=== PATIENT | female | born 1930 | race Caucasian/White ===

== ENCOUNTER 2017-01-20 20:46 | Inpatient (IN) | payer OTHER, MEDICARE ==
[~2017-01-20] VITALS: Ht 152.4 cm; Wt 52.0 kg
[~2017-01-20 20:46] MED LIST: ATOR20TA42 PO; B12-1CHW PO; FOSA70TA PO; HALO0.5T PO; LATA.005%O OU; MAXZ25 PO; METO50 PO; MONT10TA2 PO; PHEN100 PO; TYLE500T PO
[2017-01-20 20:50] VITALS: BP 184/79; PULSE 66; RESP 20; TEMP 97.5; O2SAT 98
--- NOTE | 2017-01-20 21:19 | PD ---
Physical Exam Time Seen by Provider: 21:13 Narrative 86 year old female with history of dementia, colon ca in 2002 (last colonoscopy 2011), HTN, seizure disorder, RA, anxiety, presents to ED with her daughter for evaluation of large flora red bloody stools x 2 today. Pt's daughter states that the pt has been complaining of low back pain and proximal leg weakness. She has been taking two aleve in the morning and two at night for the last three days. She has never had anything like this in the past. She has felt warm to her daughter, but has had not recent illness. No N/V. She has been relatively well lately. She is followed by Dr. Abbott's [facility].. Data Data Last Documented VS Vital Signs Date Time Temp Pulse Resp B/P Pulse Ox O2 Delivery O2 Flow Rate FiO2 01/20/17 20:50 97.5 66 20 184/79 98 MDM Medical Record Reviewed: Yes Supervised Visit with RENATA: No Narrative Course 86 year old female presents with her daughter for evaluation of two episodes of flora red bloody stools. Pt appears without distress. VSS. Condition: Stable Elva Gilbert Jan 20, 2017 21:19
[2017-01-20] MEDS ORDERED: SODIUM CHLORIDE 0.9% FLUSH 10 ML FLUSH IVF PRN (21:45)
--- NOTE | 2017-01-20 21:54 | PD ---
HPI Chief Complaint: GI Complaint Time Seen by Provider: 21:30 Travel History International Travel<30 days: No Contact w/Intl Traveler<30days: No Traveled to known affect area: No History of Present Illness HPI Patient comes in with her daughter has concerns over bright red blood per rectum the daughter noted in her stool earlier today most recently had a depends changed while in the waiting room the daughter saved. States that her mother complaining of weakness in her legs and back pain. Patient seen by primary care doctor's office has been taking ibuprofen for the past 2 weeks, but it wasn't working so they switched to Aleve the past 3 days. Denies any other known blood thinners. Patient does have a history of colon cancer and last had a colonoscopy in 2012 per daughter. Patient has a history of dementia and is a poor historian. Patient denies any pain or currently. Denies any chest pain, shortness of breath, abdominal pain, headache, or known fevers. PFSH Past Medical History Arthritis: Yes (left thumb) Cancer: Yes (colon 2002) Cardiovascular Problems: Yes (HTN) High Cholesterol: Yes Chemotherapy: Yes Chest Pain: No Congestive Heart Failure: No Cerebrovascular Accident: No Dementia: Yes Diabetes: No Diminished Hearing: Yes (WEARS HEARING AID IN RIGHT EAR. ) Endocrine: No Gastrointestinal Disorders: Yes GERD: Yes Glaucoma: Yes Genitourinary: Yes (HX OF UROSEPSIS) Headaches: Yes Hypertension: Yes Immune Disorder: No Musculoskeletal: Yes Neurologic: Yes (DAUGHTER STATES DEMENTIA) Psychiatric: No Integumentary: Yes (DSG LEFT INDEX FINGER, POST I&D 2 DAYS AGO, ON ANTIBIOTICS) Immunizations Current: Yes Seizures: No Triglycerides - High: Yes Tetanus Vaccination: Unknown Menopausal: Yes Past Surgical History Abdominal Surgery: No Cardiac Surgery: No Ear Surgery: No Endocrine Surgery: No Eye Surgery: Yes (cataract implants 1984) Genitourinary Surgery: No Gynecologic Surgery: No Joint Replacement: Yes Oral Surgery: Yes (teeth pulled) Thoracic Surgery: No Other Surgery: Yes Social History Alcohol Use: No Tobacco Use: No Substance Use: No Allergies-Medications (Allergen,Severity, Reaction): Coded Allergies: Bactrim (Verified Allergy, Mild, 01/20/17) Reported Meds & Prescriptions Reported Meds & Active Scripts Active Review of Systems ROS Limitations: Poor Historian Except as stated in HPI: all other systems reviewed are Neg Physical Exam Exam Limitations: Poor Historian Narrative GENERAL: Well-developed, well nourished, in no acute distress, and non-ill appearing. SKIN: Focused skin assessment warm and dry. HEAD: Atraumatic. Normocephalic. EYES: Pupils equal and round. EOMI. No scleral icterus. No injection or drainage. ENT: No nasal bleeding or discharge. Mucous membranes pink and moist. NECK: Trachea midline. Supple. No nuclear rigidity. CARDIOVASCULAR: Regular rate and rhythm. No murmur appreciated. RESPIRATORY: No accessory muscle use. No respiratory distress. Clear to auscultation. Breath sounds equal bilaterally. GASTROINTESTINAL: Abdomen soft, non-tender, nondistended. Hepatic and splenic margins not palpable. Normal bowel sounds 4. No pulsatile mass. MUSCULOSKELETAL: No obvious deformities. No clubbing. No cyanosis. No edema. NEUROLOGICAL: Awake and alert. No obvious cranial nerve deficits. Motor grossly within normal limits. Normal speech. PSYCHIATRIC: Appropriate mood and affect. Data Data Last Documented VS Vital Signs Date Time Temp Pulse Resp B/P Pulse Ox O2 Delivery O2 Flow Rate FiO2 01/20/17 20:50 97.5 66 20 184/79 98 Orders Complete Blood Count With Diff (01/20/17 21:40) Comprehensive Metabolic Panel (01/20/17 21:40) Prothrombin Time / Inr (Pt) (01/20/17 21:40) Act Partial Throm Time (Ptt) (01/20/17 21:40) Urinalysis - C+S If Indicated (01/20/17 21:40) Type And Screen (01/20/17 21:40) Ecg Monitoring (01/20/17 21:40) Iv Access Insert/Monitor (01/20/17 21:40) Oximetry (01/20/17 21:40) Sodium Chloride 0.9% Flush (Ns Flush) (01/20/17 21:45) Ct Abd/Pel W Iv Contrast(Rout) (01/20/17 ) Phenytoin (Dilantin) (01/20/17 22:09) Place In Observation (01/20/17 ) Vital Signs (Adult) Q4H (01/20/17 22:21) Activity Oob With Assistance (01/20/17 22:21) Applications Development Consultant / Telemetry .CONTINUOUS (01/20/17 22:21) Diet Npo (01/21/17 Breakfast) Sodium Chloride 0.9% Flush (Ns Flush) (01/20/17 22:30) Sodium Chloride 0.9% Flush (Ns Flush) (01/21/17 09:00) Ondansetron Inj (Zofran Inj) (01/20/17 22:30) Basic Metabolic Panel (Bmp) (01/21/17 06:00) Complete Blood Count With Diff (01/21/17 06:00) Pt Request For Service (01/20/17 22:21) Case Management Consult (01/20/17 22:21) Naloxone Inj (Narcan Inj) (01/20/17 22:30) ^ Other Nursing Orders (01/20/17 22:21) Admit Order (Ed Use Only) (01/20/17 22:55) Labs Laboratory Tests Test 01/20/17 22:01 Prothrombin Time 11.4 SEC Prothromb Time International 1.0 RATIO Ratio Activated Partial 24.7 SEC Thromboplast Time Sodium Level 144 MEQ/L Potassium Level 5.4 MEQ/L Chloride Level 110 MEQ/L Carbon Dioxide Level 26.1 MEQ/L Anion Gap 8 MEQ/L Blood Urea Nitrogen 22 MG/DL Creatinine 0.74 MG/DL Estimat Glomerular Filtration 75 ML/MIN Rate Random Glucose 100 MG/DL Calcium Level 8.1 MG/DL Total Bilirubin 0.3 MG/DL Aspartate Amino Transf 25 U/L (AST/SGOT) Alanine Aminotransferase 17 U/L (ALT/SGPT) Alkaline Phosphatase 68 U/L Total Protein 6.2 GM/DL Albumin 3.4 GM/DL Phenytoin (Dilantin) Level 15.3 MCG/ML Blood Type A POSITIVE Antibody Screen NEGATIVE Blood Bank Comment White Blood Count 7.5 TH/MM3 Red Blood Count 3.81 MIL/MM3 Hemoglobin 12.6 GM/DL Hematocrit 37.5 % Mean Corpuscular Volume 98.4 FL Mean Corpuscular Hemoglobin 33.0 PG Mean Corpuscular Hemoglobin 33.6 % Concent Red Cell Distribution Width 12.5 % Platelet Count 181 TH/MM3 Mean Platelet Volume 8.1 FL Neutrophils (%) (Auto) 40.3 % Lymphocytes (%) (Auto) 47.8 % Monocytes (%) (Auto) 7.1 % Eosinophils (%) (Auto) 4.3 % Basophils (%) (Auto) 0.5 % Neutrophils # (Auto) 3.0 TH/MM3 Lymphocytes # (Auto) 3.6 TH/MM3 Monocytes # (Auto) 0.5 TH/MM3 Eosinophils # (Auto) 0.3 TH/MM3 Basophils # (Auto) 0.0 TH/MM3 CBC Comment DIFF FINAL Differential Comment MDM Medical Decision Making Medical Screen Exam Complete: Yes Emergency Medical Condition: Yes Differential Diagnosis GI bleed, anemia, cancer, electrolyte abnormality, other Narrative Course Potassium slightly elevated and noted to be hemolyzed suspect this is a false elevation. Discussed patient with Dr. Gutierrez, who is agreeable to plan of care and disposition and will follow-up on CAT and UA scan as they are currently pending. Discussed all findings and plan care of patient and daughter. Patient is agreeable for admission. All questions were answered. HemaPrompt Point of Care Internal Pos. & Neg. Controls: Passed Fecal Specimen Occult Blood: Positive Comment Stool was tested from patients depends. Physician Communication Physician Communication [phone] Garcia, who is agreeable to admit the patient. Diagnosis Primary Impression: Hematochezia Admitting Information Admitting Physician Requests: Observation Condition: Stable Mykel Chinchilla Jan 20, 2017 21:54
[2017-01-20 22:11] LABS: BASOPHIL % 0.5 % (0.0-2.0); EOSINOPHIL # 0.3 TH/MM3 (0-0.4); EOSINOPHIL % 4.3 % (0.0-4.0); HEMATOCRIT 37.5 % (35.0-46.0); HEMO FLAGS DIFF FINAL; LYMPH % 47.8 % (9.0-44.0); LYMPHOCYTE # 3.6 TH/MM3 (1.0-4.8); MEAN CELL VOLUME 98.4 FL (80.0-100.0); MEAN CORPUSCULAR HGB CONC 33.6 % (32.0-36.0); MONO % 7.1 % (0.0-8.0); NEUT % 40.3 % (16.0-70.0); PLATELET COUNT 181 TH/MM3 (150-450); RED BLOOD COUNT 3.81 MIL/MM3 (4.00-5.30); RED CELL DISTRIBUTION WIDTH 12.5 % (11.6-17.2); WHITE BLOOD COUNT 7.5 TH/MM3 (4.0-11.0)
[2017-01-20 22:19] LABS: APTT (PATIENT) 24.7 SEC (24.3-30.1); PROTHROMBIN TIME - PATIENT 11.4 SEC (9.8-11.6)
[2017-01-20 22:28] LABS: ALKALINE PHOSPHATASE 68 U/L (45-117); TOTAL BILIRUBIN ADULT 0.3 MG/DL (0.2-1.0)
[2017-01-20] MEDS ORDERED: SODIUM CHLORIDE 0.9% FLUSH 10 ML FLUSH IV FLUSH PRN (22:30)
[2017-01-20] MEDS ORDERED: NALOXONE HCL 0.4 MG/ML AMP IV PRN (22:30)
[2017-01-20] MEDS ORDERED: ONDANSETRON HCL 4 MG/2 ML VIAL IVP PRN (22:30)
[2017-01-20 22:32] LABS: ALT (GPT) 17 U/L (10-53); ANION GAP 8 MEQ/L (5-15); AST (GOT) 25 U/L (15-37); BICARBONATE 26.1 MEQ/L (21.0-32.0); BLOOD UREA NITROGEN 22 MG/DL (7-18); CHLORIDE 110 MEQ/L (98-107); GLOMERULAR FILTRATION RATE 75 ML/MIN (>89); SODIUM (NA) 144 MEQ/L (136-145)
[2017-01-20 22:34] LABS: POTASSIUM 5.4 MEQ/L (3.5-5.1)
[2017-01-20 23:31] VITALS: RESP 16; O2SAT 100
[2017-01-20] MEDS ORDERED: IOHEXOL 350 MG/ML 10 ML VIAL (for RAD DIAG) IV ONE (23:45)
--- NOTE | 2017-01-20 23:57 | RADRPT ---
EXAM DATE/TIME: 01/20/2017 23:41 [facility] COMPARISON: No previous studies available for comparison. INDICATIONS : Rectal bleeding. IV CONTRAST: 70 cc Omnipaque 350 (iohexol) IV ORAL CONTRAST: No oral contrast ingested. RADIATION DOSE: 5.10 CTDIvol (mGy) MEDICAL HISTORY : Dementia. Hypertension. Deep venous thrombosis.Colon cancer SURGICAL HISTORY : Colon resection. ENCOUNTER: Initial ACUITY: 1 day PAIN SCALE: 0/10 LOCATION: abdomen TECHNIQUE: Volumetric scanning of the abdomen and pelvis was performed. Using automated exposure control and ad justment of the mA and/or kV according to patient size, radiation dose was kept as low as reasonably achievable to obtain optimal diagnostic quality images. FINDINGS: LOWER LUNGS: The visualized lower lungs are clear. LIVER: Homogeneous density without lesion. There is no dilation of the biliary tree. No calcified gallston es. SPLEEN: Normal size without lesion. PANCREAS: Within normal limits. KIDNEYS: Normal in size and shape. There is no mass, stone or hydronephrosis. ADRENAL GLANDS: Within normal limits. VASCULAR: There is no aortic aneurysm. Dense atherosclerotic disease BOWEL/MESENTERY: Suture within the right colon . Fluid filled colon. The stomach, small bowel, and colon demonstrate no acute abnormality. There is no free intraperitoneal air or fluid. ABDOMINAL WALL: Within normal limits. RETROPERITONEUM: There is no lymphadenopathy. BLADDER: No wall thickening or mass. REPRODUCTIVE: Within normal limits. INGUINAL: There is no lymphadenopathy or hernia. MUSCULOSKELETAL: Within normal limits for patient age. CONCLUSION: Suture in the right colon otherwise unremarkable CT scan of the abdomen and pelvis. No evidence of vee wel obstruction. Marked atherosclerotic disease. Emil Sweeney MD on January 20, 2017 at 23:54 Board Certified Radiologist. This report was verified electronically.
[2017-01-21] VITALS (7 sets, daily range): BP systolic 127–151; BP diastolic 51–77; PULSE 54–78; RESP 16–20; TEMP 97.6–98.7; O2SAT 94–98
[2017-01-21] MEDS ORDERED: FLUO20CA4 PO (00:18)
[2017-01-21] MEDS ORDERED: ALEN1TAB48 PO (00:18)
[2017-01-21] MEDS ORDERED: ATOR20TA15 PO (00:18)
[2017-01-21] MEDS ORDERED: DILA100C PO (00:18)
[2017-01-21] MEDS ORDERED: METO25TA3 PO (00:18)
[2017-01-21] MEDS ORDERED: LATA0.002 EACH EYE (00:18)
[2017-01-21] MEDS ORDERED: BUSP1TAB PO (00:18)
[2017-01-21 00:44] LABS: BLOOD, URINE SMALL (NEG); COMMENT (UR) CATH-CULTURE IND; CULTURE IF INDICATED CATH CULTURE IND; GLUCOSE,URINE NEG (NEG); HYALINE CAST, URINE 1 /lpf (RARE); KETONE, URINE NEG (NEG); MUCUS URINE FEW /lpf (OCC); NITRITE,URINE POS (NEG); PH, URINE 5.5 (5.0-8.5); SQUAMOUS EPITHELIAL CELL URINE <1 /hpf (0-5); URINE COLOR YELLOW (YELLW/STRAW)
--- NOTE | 2017-01-21 02:27 | HHI.HP ---
[facility] Service [facility] Primary Care Physician Freddy Abbott MD Admission Diagnosis hematochezia Diagnoses: Travel History International Travel<30 Days: No Contact w/Intl Traveler <30 Da: No Traveled to Known Affected Are: No History of Present Illness History from patient, ER provider communication, and review of medical records. Patient's daughter was at the bedside in the ER and did speak to the ER staff. According to the daughter, patient had large flora bright red blood 2 today. Daughter was worried because patient was complaining of lower back pain and therefore she gave 2 Aleve in the morning and 2 at night for the past 3 days. She never had previous history of GI bleeds. However she did have history of colon cancer in 2002 and had colonoscopy last in 2011. Patient herself is elderly lady who is extremely hard of hearing. She tells me that she was having rectal pain. She reports she has blood in stool but she thinks that it is bright red blood. She denies any chest pains/shortness of breath/dizziness/syncopal episodes. She denies any urinary burning or pain on urination. While in emergency room, patient did not have any episodes of bleeding. However upon her arrival to observation unit, patient was noted to have black color stool in her panties. At the time of my exam as well, patient does have black colored stool in her panties. Her heart rate remains to be in the 60s. She is on beta blockers at home Review of Systems Except as stated in HPI: all other systems reviewed are Neg Past Family Social History Past Medical History Hypertension Colon CA in 2002. Last colonoscopy in 2011 Seizure disorder Rheumatoid arthritis Anxiety Past Surgical History left thumb surgery Cataract surgery Colonoscopy Reported Medications Patient's medications and EMRreviewed Allergies: Coded Allergies: Bactrim (Verified Allergy, Mild, 01/20/17) Family History Patient is not able to recall family history Social History Initially denies smoking cigarettes. Later she stated she used to smoke when she was younger. Denies any alcohol abuse or drug abuse. Physical Exam Vital Signs Vital Signs Date Time Temp Pulse Resp B/P Pulse Ox O2 Delivery O2 Flow Rate FiO2 01/21/17 00:00 56 18 143/70 97 Room Air 01/20/17 23:31 16 100 Room Air 01/20/17 20:50 97.5 66 20 184/79 98 Physical Exam GENERAL: This is a well-nourished, well-developed patient, in no apparent distress. SKIN: No rashes, ecchymoses or lesions. Cool and dry. HEAD: Atraumatic. Normocephalic. No temporal or scalp tenderness. EYES: No scleral icterus. No injection or drainage. ENT: Nose without bleeding, purulent drainage or septal hematoma Airway patent. NECK: Trachea midline. No JVD or lymphadenopathy. Supple, nontender, no meningeal signs. CARDIOVASCULAR: Regular rate and rhythm without murmurs, gallops, or rubs. RESPIRATORY: Clear to auscultation. Breath sounds equal bilaterally. No wheezes , rales, or rhonchi. GASTROINTESTINAL: Abdomen soft, non-tender, nondistended. No guarding. MUSCULOSKELETAL: Extremities without clubbing, cyanosis, or edema. No calf tenderness. NEUROLOGICAL: Awake and alert. Extremely hard of hearing. Motor and sensory grossly within normal limits. Normal speech. Laboratory Laboratory Tests Test 01/20/17 01/21/17 22:01 00:10 Prothrombin Time 11.4 Prothromb Time International 1.0 Ratio Activated Partial 24.7 Thromboplast Time Sodium Level 144 Potassium Level 5.4 Chloride Level 110 Carbon Dioxide Level 26.1 Anion Gap 8 Blood Urea Nitrogen 22 Creatinine 0.74 Estimat Glomerular Filtration 75 Rate Random Glucose 100 Calcium Level 8.1 Total Bilirubin 0.3 Aspartate Amino Transf 25 (AST/SGOT) Alanine Aminotransferase 17 (ALT/SGPT) Alkaline Phosphatase 68 Total Protein 6.2 Albumin 3.4 Phenytoin (Dilantin) Level 15.3 Blood Type A POSITIVE Antibody Screen NEGATIVE Blood Bank Comment White Blood Count 7.5 Red Blood Count 3.81 Hemoglobin 12.6 Hematocrit 37.5 Mean Corpuscular Volume 98.4 Mean Corpuscular Hemoglobin 33.0 Mean Corpuscular Hemoglobin 33.6 Concent Red Cell Distribution Width 12.5 Platelet Count 181 Mean Platelet Volume 8.1 Neutrophils (%) (Auto) 40.3 Lymphocytes (%) (Auto) 47.8 Monocytes (%) (Auto) 7.1 Eosinophils (%) (Auto) 4.3 Basophils (%) (Auto) 0.5 Neutrophils # (Auto) 3.0 Lymphocytes # (Auto) 3.6 Monocytes # (Auto) 0.5 Eosinophils # (Auto) 0.3 Basophils # (Auto) 0.0 CBC Comment DIFF FINAL Differential Comment Urine Color YELLOW Urine Turbidity HAZY Urine pH 5.5 Urine Specific [place] 1.025 Urine Protein NEG Urine Glucose (UA) NEG Urine Ketones NEG Urine Occult Blood SMALL Urine Nitrite POS Urine Bilirubin NEG Urine Urobilinogen LESS THAN 2.0 Urine Leukocyte Esterase MOD Urine RBC 2 Urine WBC 38 Urine Squamous Epithelial <1 Cells Urine Hyaline Casts 1 Urine Mucus FEW Microscopic Urinalysis Comment CATH-CULTURE IND Date/Time Procedure Status Source Growth 01/21/17 00:10 Urine Culture Received Urine Catheterized Urine Pending Result Diagram: 01/20/171 01/20/17 2201 Imaging Last 48 hours Impressions Abdomen/Pelvis CT 01/20/17 0000 Signed Impressions: Service Date/Time: Friday, January 20, 2017 23:41 - CONCLUSION: Suture in the right colon otherwise unremarkable CT scan of the abdomen and pelvis. No evidence of bowel obstruction. Marked atherosclerotic disease. Emil Sweeney MD Assessment and Plan Problem List: (1) GI bleed due to NSAIDs ICD Code: K92.2 Status: Acute Assessment and Plan Impression: GI bleedlikely upper GI bleed. Secondary to NSAIDs use Hypertension Colon CA in 2002. Last colonoscopy in 2011 Seizure disorder Rheumatoid arthritis Anxiety Plan: Pantoprazole IV drip. Serial hemoglobin and hematocrit. Type and screen. 2 units of PRBC and blood bank. Will likely need blood transfusion by a.m. Currently hemoglobin is stable. Avoid NSAIDs. Avoid with the nurse. GI consult. Resume home medicationsapart from antihypertensives. DVT prophylaxiswith SCD. GI prophylaxis on pantoprazole. Discussed Condition With patient, ER , patient's nurse Steven Garcia MD Jan 21, 2017 02:27
[2017-01-21 02:59] LABS: AUTOMATED NEUTROPHIL # 3.5 TH/MM3 (1.8-7.7); BASOPHIL % 0.3 % (0.0-2.0); EOSINOPHIL # 0.3 TH/MM3 (0-0.4); EOSINOPHIL % 4.2 % (0.0-4.0); HEMATOCRIT 33.7 % (35.0-46.0); HEMO FLAGS DIFF FINAL; LYMPH % 38.6 % (9.0-44.0); LYMPHOCYTE # 2.7 TH/MM3 (1.0-4.8); MEAN CELL VOLUME 98.6 FL (80.0-100.0); MEAN CORPUSCULAR HEMOGLOBIN 33.3 PG (27.0-34.0); MEAN CORPUSCULAR HGB CONC 33.8 % (32.0-36.0); MONO % 6.8 % (0.0-8.0); NEUT % 50.1 % (16.0-70.0); PLATELET COUNT 173 TH/MM3 (150-450); RED BLOOD COUNT 3.42 MIL/MM3 (4.00-5.30); RED CELL DISTRIBUTION WIDTH 12.8 % (11.6-17.2)
[2017-01-21] MEDS ORDERED: PILL SPLITTER OTHER PRN (03:15)
[2017-01-21 03:42] LABS: BICARBONATE 27.4 MEQ/L (21.0-32.0); POTASSIUM 4.3 MEQ/L (3.5-5.1)
[2017-01-21] MEDS ORDERED: PANTOPRAZOLE INJ 80 MG in SODIUM CHLORIDE 0.9% INJ 35 ML IV ONE (03:45)
[2017-01-21] MEDS: PANTOPRAZOLE INJ 80 MG in SODIUM CHLORIDE 0.9% INJ 100 ML IV SCH ×3 (03:46→23:45)
--- NOTE | 2017-01-21 08:40 | HHI.PR ---
Subjective Remarks Follow up for GI bleeding. The patient is not a great historian with speech deficit and hard of hearing. She denies any abdominal pain, nausea/vomiting, but does report continued bowel movements overnight which she believes has been diarrhea. She does not know the color of her stool. Stool was reported black by nursing staff. No fevers/chills. No other medical complaints. The patient states she hopes her daughter comes back to be with her. Objective Vitals Vital Signs Date Time Temp Pulse Resp B/P Pulse Ox O2 Delivery O2 Flow Rate FiO2 01/21/17 02:51 97.6 54 18 134/61 96 01/21/17 02:15 60 01/21/17 00:00 56 18 143/70 97 Room Air 01/20/17 23:31 16 100 Room Air 01/20/17 20:50 97.5 66 20 184/79 98 Result Diagram: 01/21/17 0247 01/21/17 0247 Imaging Last Impressions Abdomen/Pelvis CT 01/20/17 0000 Signed Impressions: Service Date/Time: Friday, January 20, 2017 23:41 - CONCLUSION: Suture in the right colon otherwise unremarkable CT scan of the abdomen and pelvis. No evidence of bowel obstruction. Marked atherosclerotic disease. Emil Sweeney MD Objective Remarks GENERAL: Well-nourished, well-developed elderly female patient in [facility]. SKIN: Warm and dry. No rash. HEENT: Normocephalic. Atraumatic. Pupils equal and round. Mucous membranes pink and moist. NECK: Supple. Trachea midline. CARDIOVASCULAR: Regular rate and rhythm. S1, S2 noted. 1/6 systolic murmur noted. RESPIRATORY: No accessory muscle use. Clear to auscultation. Breath sounds equal bilaterally. GASTROINTESTINAL: Abdomen soft, non-tender, nondistended. Normoactive bowel sounds x4. MUSCULOSKELETAL: No obvious deformities. Extremities without clubbing, cyanosis , or edema. NEUROLOGICAL: Awake and alert. No obvious cranial nerve deficits. Motor grossly within normal limits. Normal speech. PSYCHIATRIC: Appropriate mood and affect; insight and judgment fair. Medications and IVs Current Medications Medications (Trade) Dose Ordered Sig/Justen Route Start Time Stop Time Status Last Admin (NS Flush) 2 ml UNSCH PRN IV FLUSH 01/20/17 22:30 (NS Flush) 2 ml BID IV FLUSH 01/21/17 09:00 (Zofran Inj) 4 mg Q6H PRN IVP 01/20/17 22:30 Naloxone HCl 0.4 mg 0.4 mg UNSCH PRN IV 01/20/17 22:30 (Protonix Inj/NS Inj) 100 ml @ 10 mls/hr Q10H IV 01/21/17 03:45 01/21/17 03:46 (Lipitor) 20 mg HS PO 01/21/17 21:00 (Buspar) 7.5 mg BID PO 01/21/17 09:00 (PROzac) 20 mg DAILY PO 01/21/17 09:00 (Xalatan 0.005% Opth Soln) 1 drop HS EACH EYE 01/21/17 21:00 (Dilantin) 100 mg TID PO 01/21/17 09:00 (Pill Splitter) 1 ea UNSCH PRN OTHER 01/21/17 03:15 A/P Problem List: (1) GI bleed due to NSAIDs ICD Code: K92.2 Status: Acute Assessment and Plan 86-year-old female with history of colon cancer in 2002, hypertension, rheumatoid arthritis, seizure disorder, anxiety, presents with one-day history of hematochezia GI Bleeding: reported hematochezia by family, however noted to have black stools in ER. Hemoccult positive. Recently taking NSAIDs [id number] for low back pain. CT abd/pelvis images reviewed by me, unremarkable. Started IV Protonix drip. Monitor serial H&H, Hgb 12.6 --> 11.4. Suspect may require transfusion, 2units pRBCs type & crossed. Keep NPO. Consult GI. Seizure Disorder: chronic, continue patient's dilantin. Hypertension: chronic, hold patient's antihypertensives for now with GI bleed as above. Monitor BP. UTI: UA with positive nitrites and leuks. Patient not a great historian but denies dysuria. Will start on IV Rocephin for now. Await urine culture. Anxiety: chronic, continue patient's fluoxetine and buspar. Hyperlipidemia: chronic, continue patient's statin. DVT Prophylaxis: teds/SCDs, avoid chemical prophylaxis secondary to GIB as above Discussed with Dr. Garcia, Lainey Yañez PA-C Jan 21, 2017 8:40 am
[2017-01-21] MEDS: FLUoxetine HCL 20 MG CAP PO SCH (09:44)
[2017-01-21] MEDS: busPIRone HCL 5 MG TAB PO SCH ×2 (09:44→21:00)
[2017-01-21] MEDS: PHENYTOIN SODIUM 100 MG CAP PO SCH ×3 (09:44→18:05)
[2017-01-21] MEDS: cefTRIAXone INJ 1,000 MG in SODIUM CHLORIDE 0.9% INJ 100 ML IV SCH (09:44)
[2017-01-21 11:25] LABS: HEMATOCRIT 28.2 % (35.0-46.0); REVIEW FLAG FINAL
--- NOTE | 2017-01-21 12:21 | PD.CONS ---
HPI History of Present Illness This is a 86 year old female with a hx of colon cancer, that was brought to the ER for evaluation of rectal bleeding. PFSH Past Medical History Hypertension Colon CA in 2002. Last colonoscopy in 2011 Seizure disorder Rheumatoid arthritis Anxiety Glaucoma Hearing loss Dementia Hx urosepsis B12 Deficiency Hyperlipidemia Past Surgical History Left thumb surgery Cataract surgery Colonoscopy Resection for colon cancer Coded Allergies: Bactrim (Verified Allergy, Mild, 01/20/17) Medications Allergies Coded Allergies Type Severity Reaction Last Updated Verified Bactrim Allergy Mild 01/20/17 Yes Active Scripts Medications Dose Route/Sig Days Date Category Dose Instructions Latanoprost Opth Drops (Latanoprost) 0.005% Drops 1 Drop EACH EYE HS 01/21/17 Reported Refrigerate until opened. Fluoxetine (Fluoxetine HCl) 20 Mg Cap 20 Mg PO DAILY 01/21/17 Reported Buspirone (Buspirone HCl) 7.5 Mg Tab 7.5 Mg PO BID 01/21/17 Reported Atorvastatin (Atorvastatin Calcium) 20 Mg Tab 20 Mg PO HS 01/21/17 Reported Metoprolol Tartrate 25 Mg Tab 25 Mg PO BID 01/21/17 Reported Dilantin (Phenytoin Extended) 100 Mg Cap 100 Mg PO TID 01/21/17 Reported Alendronate (Alendronate Sodium) 70 Mg Tab 70 Mg PO Q7D 01/21/17 Reported Family History Unable to obtain Social History No use of tobacco, etoh, illicit drug use. GI Exam Vitals I&O Vital Signs Date Time Temp Pulse Resp B/P Pulse Ox O2 Delivery O2 Flow Rate FiO2 01/21/17 08:38 98.7 59 16 127/51 94 01/21/17 02:51 97.6 54 18 134/61 96 01/21/17 02:15 60 01/21/17 00:00 56 18 143/70 97 Room Air 01/20/17 23:31 16 100 Room Air 01/20/17 20:50 97.5 66 20 184/79 98 I/O 01/20/17 01/20/17 01/20/17 01/21/17 01/21/17 01/21/17 07:00 15:00 23:00 07:00 15:00 23:00 Output Total 1 ml Balance -1 ml Output Stool Total 1 ml Imaging Last Impressions Abdomen/Pelvis CT 01/20/17 0000 Signed Impressions: Service Date/Time: Friday, January 20, 2017 23:41 - CONCLUSION: Suture in the right colon otherwise unremarkable CT scan of the abdomen and pelvis. No evidence of bowel obstruction. Marked atherosclerotic disease. Emil Sweeney MD Laboratory Test 01/20/17 01/21/17 01/21/17 01/21/17 22:01 00:10 02:33 02:47 Prothrombin Time 11.4 SEC Prothromb Time International 1.0 RATIO Ratio Activated Partial 24.7 SEC Thromboplast Time Sodium Level 144 MEQ/L 143 MEQ/L Potassium Level 5.4 MEQ/L 4.3 MEQ/L Chloride Level 110 MEQ/L 110 MEQ/L Carbon Dioxide Level 26.1 MEQ/L 27.4 MEQ/L Anion Gap 8 MEQ/L 6 MEQ/L Blood Urea Nitrogen 22 MG/DL 24 MG/DL Creatinine 0.74 MG/DL 0.65 MG/DL Estimat Glomerular Filtration 75 ML/MIN 87 ML/MIN Rate Random Glucose 100 MG/DL 102 MG/DL Calcium Level 8.1 MG/DL 7.9 MG/DL Total Bilirubin 0.3 MG/DL Aspartate Amino Transf 25 U/L (AST/SGOT) Alanine Aminotransferase 17 U/L (ALT/SGPT) Alkaline Phosphatase 68 U/L Total Protein 6.2 GM/DL Albumin 3.4 GM/DL Phenytoin (Dilantin) Level 15.3 MCG/ML Blood Type A POSITIVE A POSITIVE A POSITIVE Antibody Screen NEGATIVE Blood Bank Comment White Blood Count 7.5 TH/MM3 7.0 TH/MM3 Red Blood Count 3.81 MIL/MM3 3.42 MIL/MM3 Hemoglobin 12.6 GM/DL 11.4 GM/DL Hematocrit 37.5 % 33.7 % Mean Corpuscular Volume 98.4 FL 98.6 FL Mean Corpuscular Hemoglobin 33.0 PG 33.3 PG Mean Corpuscular Hemoglobin 33.6 % 33.8 % Concent Red Cell Distribution Width 12.5 % 12.8 % Platelet Count 181 TH/MM3 173 TH/MM3 Mean Platelet Volume 8.1 FL 7.5 FL Neutrophils (%) (Auto) 40.3 % 50.1 % Lymphocytes (%) (Auto) 47.8 % 38.6 % Monocytes (%) (Auto) 7.1 % 6.8 % Eosinophils (%) (Auto) 4.3 % 4.2 % Basophils (%) (Auto) 0.5 % 0.3 % Neutrophils # (Auto) 3.0 TH/MM3 3.5 TH/MM3 Lymphocytes # (Auto) 3.6 TH/MM3 2.7 TH/MM3 Monocytes # (Auto) 0.5 TH/MM3 0.5 TH/MM3 Eosinophils # (Auto) 0.3 TH/MM3 0.3 TH/MM3 Basophils # (Auto) 0.0 TH/MM3 0.0 TH/MM3 CBC Comment DIFF FINAL DIFF FINAL Differential Comment Urine Color YELLOW Urine Turbidity HAZY Urine pH 5.5 Urine Specific [place] 1.025 Urine Protein NEG mg/dL Urine Glucose (UA) NEG mg/dL Urine Ketones NEG mg/dL Urine Occult Blood SMALL Urine Nitrite POS Urine Bilirubin NEG Urine Urobilinogen LESS THAN 2.0 MG/DL Urine Leukocyte Esterase MOD Urine RBC 2 /hpf Urine WBC 38 /hpf Urine Squamous Epithelial <1 /hpf Cells Urine Hyaline Casts 1 /lpf Urine Mucus FEW /lpf Microscopic Urinalysis Comment CATH-CULTURE IND Crossmatch Leukocyte-Reduced Red Blood Cells Test 01/21/17 10:57 Hemoglobin 9.8 GM/DL Hematocrit 28.2 % Date/Time Procedure Status Source Growth 01/21/17 00:10 Urine Culture Received Urine Catheterized Urine Pending Physical Examination HEENT: Pupils round and reactive to light; normocephalic; atraumatic; no jaundice. Throat is clear. NECK: Neck is supple, no JVD, no lymphadenopathy. CHEST: Chest is clear to auscultation and percussion. CARDIAC: Regular rate and rhythm with no murmur gallop or rubs. ABDOMEN: Soft, nondistended, nontender; no hepatosplenomegaly; bowel sounds are present in all four quadrants. EXTREMITIES: No clubbing, cyanosis, or edema. SKIN: Normal; no rash; no jaundice. WASHHOUSE HAND: No focal deficits; alert and oriented times three. Melvina Rahman Jan 21, 2017 12:21
--- NOTE | 2017-01-21 13:00 | HHI.GIFU ---
GI Follow-up Note Consult Follow-up Called daughter to get history, as patient has dementia and is unable to provide hx. Daughter reports that she has been going to Dr. Bang for many years and has colonoscopies with him every couple of years. Will consult his service. Entered by: Melvina Johnson Jan 21, 2017 13:00
[2017-01-21 13:52] LABS: HEMATOCRIT 28.8 % (35.0-46.0); REVIEW FLAG FINAL
--- NOTE | 2017-01-21 15:03 | PD.CONS ---
GI Consult GI Consult SEE FORMAL CONSULT DICTATED TODAY ALSO ASSESSMENT/PLAN: 1. GI bleeding/OB+ stools--was red and now black stools. +NSAIDS. r/o PUD 2. Hx of colon cancer 3. anemia PLAN: 1. PPI 2. EGD hopefully today 3. transfuse as needed It was a pleasure seeing Adelaida Portillo . Thank you for this consult. Entered by: Antonio Polanco MD Jan 21, 2017 15:03
[2017-01-21] MEDS ORDERED: PROPOFOL 200 MG/20 ML AMP IV ONE (16:05)
--- NOTE | 2017-01-21 16:33 | HHI.GIFU ---
GI Follow-up Note Consult Follow-up EGD and biopsy (see dictated report also-[id number]) FINDINGS: 1. Esoph--small H-H, Schatzki's ring and esoph erosions and presby-like esophagus 2. Stomach-4 3-4 mm non-bleeding clean based ulcers in the pre-pyloric area-bx. Multiple antral erosions-bx 3. Duodenum-Post bulbar stenosis-scope passed with ease. O/W neg PLAN: 1. PPI 2. await path 3. Clear liquids 4. Dr. Tejada will see pt tomorrow It was a pleasure seeing Adelaida Portillo. Thank you for this consult. Entered by: Antonio Polanco MD Jan 21, 2017 16:33
[2017-01-21] MEDS ORDERED: FLUMAZENIL 0.5 MG/5 ML VIAL IV PRN ×2 (16:45)
[2017-01-21] MEDS: SODIUM CHLORIDE 0.9% FLUSH 10 ML FLUSH IV FLUSH SCH ×2 (18:06→21:00)
--- NOTE | 2017-01-21 18:35 | MB ---
cc: ANTONIO WORRELL MD,RENY JEFFERSON,JUDE RICHARD,ZAID Chambers MD DATE OF CONSULTATION 01/21/17 DATE OF 1930 REASON FOR CONSULTATION I was asked to see this patient in consultation by Dr. Richard evaluation of GI bleeding. HISTORY OF PRESENT ILLNESS The patient is a pleasant and confused 86-year old white female with history of dementia and colon cancer. Her last colonoscopy was in June 2013 and small polyps were noted. No diverticula were seen. Apparently, she did have arthritis and she has been using ibuprofen and it has not been helping. Recently the medication was changed to Aleve according to the daughter who I talked to via the phone. Yesterday she went to bathroom and had bright red blood per rectum. She came to the emergency room. Emergency room did a rectal exam and it was heme-positive, but they but did not indicate whether it was red or black. However, throughout the night to stools became black and she had two black ones throughout the night but none today but throughout the night - the last one was this morning. She has not had any more bowel movements. The patient is pleasantly confused. Most of the history is obtained from the patient's daughter. There has been no dysphagia or odynophagia, no nausea, vomiting, no fever or chills or abdominal pain. PAST HISTORY 1. Except for colon cancer resected, she has had adenomatous colon polyps in the past. 2. hypertension, 3. Arthritis, 4. Possible seizure disorder, details unclear. 5. Rheumatoid arthritis 6. Anxiety 7. Dementia. 8. Possible glaucoma 9. Dyslipidemia PAST SURGICAL HISTORY 1. Left thumb surgery 2. Cataract surgery 3. Colonoscopy and resection in regards to colon cancer - appears to have involved the right colon. ALLERGIES BACTRIM POSSIBLY MORPHINE per our records in the office. FAMILY HISTORY Significant for lung cancer and diabetes, arthritis and CVAs in the family but no one has had colon cancer, colon polyps. This is per our records. SOCIAL HISTORY She smoked when she was very young. Does not take any significant amounts of alcohol. REVIEW OF SYSTEMS Per her daughter, intermittent weight loss but no fever or chills. CARDIOPULMONARY: No chest pain, palpitation or shortness of breath. GASTROINTESTINAL: Please see above. Otherwise we could not get a complete review of systems because of the patient's clinical state - her dementia. There have been joint pains, however. MEDICATIONS 1. Dilantin. 2. Lipitor 3. Latanoprost eye drops 4. BuSpar, 5. Prozac 6. Ceftriaxone 7. Pantoprazole drip 8. Zofran. 9. Narcan. PHYSICAL EXAMINATION VITAL SIGNS: Blood pressure is 131/64, pulse 70, respiratory rate of 18, temperature 98.4. GENERAL: She is an elderly white female resting comfortably at this time, appears to be in no acute GI distress right now. HEENT: Pupils equal, round, reactive to light. No obvious scleral icterus. Oropharynx - had dental caries. No tongue deviation. Hearing was diminished bilaterally. NECK: Supple. No thyromegaly or lymphadenopathy LUNGS: Clear to auscultation HEART: Regular rate and rhythm. ABDOMEN: Soft, doughy, no organomegaly or masses. Mild palpation caused tenderness throughout but I could not solar energy technician how bad the discomfort was - there is no obvious rebound tenderness per se but touching her abdomen she would jump. RECTAL: I attempted the rectal exam, but she would not allow us to do this. NEUROLOGIC: She appears to be right to person but not to place or time. She is moving all four extremities. I did not assess her gait. SKIN: Warm and dry. IMAGING STUDIES CT scan of abdomen and pelvis was unremarkable except that there was a suture noted on her right colon. There is some marked atherosclerotic disease. LABORATORY DATA Hemoglobin 12.6 with hematocrit 37.5, MCV 98.4, WBC of 7500. Her platelet count was 281,000. Hemoglobin slowly dropped to 11.4, 9.8 and then 9.9 this afternoon.. Other important labs include a BUN 24 which is elevated, creatinine 0.65 which is normal, total bilirubin 0.3, SGOT 25, SGPT 17, alk phos 68, albumin 3.4 is normal. Potassium 4.3, sodium 143. Her prothrombin time 11.4, INR 1.0, PTT 24.7. IMPRESSION 1. GI bleeding - she was heme-positive. Initially the ER records report red stools, but nurses said she has had black bowel movements. I did talk to her. Daughter said also was black today. She has taken NSAIDs as well as ibuprofen and Aleve and the daughter does understand this may be NSAID related gastropathy such as ulcers. Whether it is related to AVMs or malignant lesion in the stomach unclear. Occasionally colonic lesion do have black stools. 2. Anemia, more likely acute blood loss anemia. 3. History of NSAID usage 4. History of colon cancer and colon polyps. Last colonoscopy was June 2013. polyps were noted and these were removed. No diverticulosis seen. RECOMMENDATIONS 1. Continue PPI. 2. Avoid NSAIDs 3. Proceed with upper endoscopy. I discussed with the patient's daughter indications, risks, complications, benefits and limitations to include bleeding, perforation, infection, arrhythmias, small possibility of duct tear. We will try to do this today, bit if not we will do it tomorrow. 4. Further recommendations depending on what above testing shows. Antonio Worrell MD SP/ /3:13 PM /5:56 PM LEAH
[2017-01-21 20:11] LABS: HEMATOCRIT 30.8 % (35.0-46.0); REVIEW FLAG FINAL
[2017-01-21] MEDS: ATORVASTATIN 20 MG TAB PO SCH (21:00)
[2017-01-21] MEDS: LATANOPROST 0.005% OPHT SOLN 2.5 ML BTL EACH EYE SCH (21:00)
[2017-01-22] VITALS (8 sets, daily range): BP systolic 111–147; BP diastolic 48–93; PULSE 56–84; RESP 18–22; TEMP 98–98.8; O2SAT 95–97
[2017-01-22] MEDS: PANTOPRAZOLE INJ 80 MG in SODIUM CHLORIDE 0.9% INJ 100 ML IV SCH ×2 (05:53→13:30)
[2017-01-22] MEDS: PHENYTOIN SODIUM 100 MG CAP PO SCH ×3 (08:45→18:05)
[2017-01-22] MEDS: busPIRone HCL 5 MG TAB PO SCH ×2 (08:45→22:06)
[2017-01-22] MEDS: FLUoxetine HCL 20 MG CAP PO SCH (08:45)
[2017-01-22] MEDS: SODIUM CHLORIDE 0.9% FLUSH 10 ML FLUSH IV FLUSH SCH ×2 (08:47→21:00)
[2017-01-22] MEDS: cefTRIAXone INJ 1,000 MG in SODIUM CHLORIDE 0.9% INJ 100 ML IV SCH (08:47)
--- NOTE | 2017-01-22 18:16 | HHI.PR ---
Subjective Remarks Follow-up for GI bleed. Patient reports feeling slightly better today. She is tolerating clear liquid diet. It is difficult to obtain information from this patient as she has a intellectual/speech deficit. No further bleeding reported overnight. She has no other medical complaints at this time. Objective Vitals Vital Signs Date Time Temp Pulse Resp B/P Pulse Ox O2 Delivery O2 Flow Rate FiO2 01/22/17 16:42 98.8 74 18 141/72 97 01/22/17 12:57 98.8 68 21 147/62 97 01/22/17 08:10 98.6 74 20 147/57 95 01/22/17 07:25 71 01/22/17 04:00 98.2 84 18 111/48 97 01/22/17 00:00 98.0 73 18 138/59 96 01/21/17 20:19 72 01/21/17 20:00 98.2 71 20 151/77 98 I/O 01/21/17 01/21/17 01/21/17 01/22/17 01/22/17 01/22/17 07:00 15:00 23:00 07:00 15:00 23:00 Intake Total 200 ml 120 ml Output Total 1 ml Balance -1 ml 200 ml 120 ml Intake Oral 120 ml Other 200 ml Output Stool Total 1 ml # Voids 3 # Bowel Movements 0 Result Diagram: 01/21/17 1907 01/21/17 0247 Imaging Last Impressions Abdomen/Pelvis CT 01/20/17 0000 Signed Impressions: Service Date/Time: Friday, January 20, 2017 23:41 - CONCLUSION: Suture in the right colon otherwise unremarkable CT scan of the abdomen and pelvis. No evidence of bowel obstruction. Marked atherosclerotic disease. Emil Sweeney MD Objective Remarks GENERAL: Well-nourished, well-developed elderly female patient in [facility]. SKIN: Warm and dry. No rash. HEENT: Normocephalic. Atraumatic. Pupils equal and round. Mucous membranes pink and moist. NECK: Supple. Trachea midline. CARDIOVASCULAR: Regular rate and rhythm. S1, S2 noted. 1/6 systolic murmur noted. RESPIRATORY: No accessory muscle use. Clear to auscultation. Breath sounds equal bilaterally. GASTROINTESTINAL: Abdomen soft, non-tender, nondistended. Normoactive bowel sounds x4. MUSCULOSKELETAL: No obvious deformities. Extremities without clubbing, cyanosis , or edema. NEUROLOGICAL: Awake and alert. No obvious cranial nerve deficits. Motor grossly within normal limits. Normal speech. PSYCHIATRIC: Appropriate mood and affect; insight and judgment fair. Procedures EGD 01/21/[address] Wills shows gastric ulcer, gastric erosion, hiatal hernia , esophagitis, Schatzki's ring Medications and IVs Current Medications Medications (Trade) Dose Ordered Sig/Justen Route Start Time Stop Time Status Last Admin (NS Flush) 2 ml UNSCH PRN IV FLUSH 01/20/17 22:30 (NS Flush) 2 ml BID IV FLUSH 01/21/17 09:00 01/21/17 18:06 (Zofran Inj) 4 mg Q6H PRN IVP 01/20/17 22:30 Naloxone HCl 0.4 mg 0.4 mg UNSCH PRN IV 01/20/17 22:30 (Protonix Inj/NS Inj) 100 ml @ 10 mls/hr Q10H IV 01/21/17 03:45 01/22/17 13:30 (Lipitor) 20 mg HS PO 01/21/17 21:00 (Buspar) 7.5 mg BID PO 01/21/17 09:00 01/22/17 08:45 (PROzac) 20 mg DAILY PO 01/21/17 09:00 01/22/17 08:45 (Xalatan 0.005% Opth Soln) 1 drop HS EACH EYE 01/21/17 21:00 (Dilantin) 100 mg TID PO 01/21/17 09:00 01/22/17 18:05 Miscellaneous 1 ea 1 ea UNSCH PRN OTHER 01/21/17 03:15 (Rocephin Inj/NS Inj) 100 ml @ 200 mls/hr Q24H IV 01/21/17 09:00 01/22/17 08:47 A/P Problem List: (1) GI bleed due to NSAIDs ICD Code: K92.2 Status: Acute Assessment and Plan 86-year-old female with history of colon cancer in 2002, hypertension, rheumatoid arthritis, seizure disorder, anxiety, presents with one-day history of hematochezia GI Bleeding, with Gastric Ulcer/Erosion, Esophagitis: reported hematochezia by family, however noted to have black stools in ER. Recently taking NSAIDs [id number] for low back pain. -Hemoccult positive. -CT abd/pelvis images reviewed by me, unremarkable. -Started IV Protonix drip. -Monitor serial H&H, Hgb 12.6 --> 11.4 -->9.8 --> 10.4, currently stable. 2units pRBCs type & crossed however patient has not required transfusion. -Consult GI, patient known to Dr. Bang. -S/p EGD 01/21/[address] Wills shows gastric ulcer, gastric erosion, hiatal hernia, esophagitis, Schatzki's ring. -No further bleeding reported. -Change Protonix drip to IV Protonix 40mg bid. -Advanced to clear liquid diet. -Consider carafate if patient not tolerating oral intake. Seizure Disorder: chronic, continue patient's dilantin. Hypertension: chronic, held patient's antihypertensives for now with GI bleed as above. Monitor BP. UTI: UA with positive nitrites and leuks. Urine culture with Enterobacter Cloacae. Continue on IV Rocephin for now, until patient tolerating po. Anxiety: chronic, continue patient's fluoxetine and buspar. Hyperlipidemia: chronic, continue patient's statin. DVT Prophylaxis: teds/SCDs, avoid chemical prophylaxis secondary to GIB as above Written by Lainey Meng, acting as scribe for Dr. Andrea on 01/22/17 at 18: 16. Discharge Planning Possible discharge tomorrow if patient tolerating diet and no further bleeding. Discussed with RN, the patient lives with her daughter at home. Attending Statement This note was transcribed by scribe. I, Dr. Sabine Andrea personally performed the history, physical exam, and medical decision making; and confirmed the accuracy of the information in the transcribed note. Lainey Meng PA-C Jan 22, 2017 18:16 Sabine Andrea MD February 04, 2017 10:47
--- NOTE | 2017-01-22 18:46 | HHI.FF ---
Face to Face Verification Diagnosis: (1) GI bleed due to NSAIDs (2) Gastric ulcer (3) Gastric erosion (4) Esophagitis (5) Hiatal hernia (6) History of colon cancer (7) Seizure disorder (8) RA (rheumatoid arthritis) Physical Therapy Order: Evaluate and Treat, Improve ambulation, Strength and gait training Home Health Nursing Order: Medical education Signs/symptoms of disease process Nursing assessment with vital signs I have seen patient Adelaida Portillo on 01/22/17. My clinical findings support the need for the requested home health care services because: Ltd mobility - disease progression Med compliance is questionable Limited ability to care for self Need for psychosocial assistance Impaired cognition/judgement I certify that my clinical findings support that this patient is homebound because: Impaired cognitive ability/safety Unsteady gait/balance Unsafe to leave home unassisted Lainey Meng PA-C Jan 22, 2017 6:46 pm
[2017-01-22] MEDS: LATANOPROST 0.005% OPHT SOLN 2.5 ML BTL EACH EYE SCH (21:00)
[2017-01-22] MEDS: ATORVASTATIN 20 MG TAB PO SCH (22:06)
[2017-01-22] MEDS: PANTOPRAZOLE SODIUM 40 MG VIAL IV PUSH SCH (22:06)
[2017-01-23] VITALS (8 sets, daily range): BP systolic 121–174; BP diastolic 53–73; PULSE 66–87; RESP 18–22; TEMP 96.6–98.4; O2SAT 95–99
--- NOTE | 2017-01-23 08:02 | HHI.GIFU ---
Subjective Remarks Alert NAD No complaints.....had dark stools x 2 last night.. repeat HB ordered tolerating clear liquids Objective Vitals I&O Vital Signs Date Time Temp Pulse Resp B/P Pulse Ox O2 Delivery O2 Flow Rate FiO2 01/23/17 06:07 18 01/23/17 03:41 98.0 66 21 121/53 96 01/22/17 23:29 98.0 64 20 141/78 96 01/22/17 20:03 98.2 56 22 140/93 96 01/22/17 16:42 98.8 74 18 141/72 97 01/22/17 12:57 98.8 68 21 147/62 97 01/22/17 08:10 98.6 74 20 147/57 95 I/O 01/22/17 01/22/17 01/22/17 01/23/17 01/23/17 01/23/17 07:00 15:00 23:00 07:00 15:00 23:00 Intake Total 120 ml Output Total 501 ml Balance 120 ml -501 ml Intake Oral 120 ml Output Urine Total 500 ml Stool Total 1 ml # Voids 3 # Bowel Movements 0 1 Laboratory Laboratory Tests Test 01/20/17 01/21/17 01/21/17 01/21/17 22:01 00:10 02:33 02:47 Prothrombin Time 11.4 SEC Prothromb Time International 1.0 RATIO Ratio Activated Partial 24.7 SEC Thromboplast Time Total Bilirubin 0.3 MG/DL Aspartate Amino Transf 25 U/L (AST/SGOT) Alanine Aminotransferase 17 U/L (ALT/SGPT) Alkaline Phosphatase 68 U/L Total Protein 6.2 GM/DL Albumin 3.4 GM/DL Phenytoin (Dilantin) Level 15.3 MCG/ML Antibody Screen NEGATIVE Urine Color YELLOW Urine Turbidity HAZY Urine pH 5.5 Urine Specific [place] 1.025 Urine Protein NEG mg/dL Urine Glucose (UA) NEG mg/dL Urine Ketones NEG mg/dL Urine Occult Blood SMALL Urine Nitrite POS Urine Bilirubin NEG Urine Urobilinogen LESS THAN 2.0 MG/DL Urine Leukocyte Esterase MOD Urine RBC 2 /hpf Urine WBC 38 /hpf Urine Squamous Epithelial <1 /hpf Cells Urine Hyaline Casts 1 /lpf Urine Mucus FEW /lpf Microscopic Urinalysis Comment CATH-CULTURE IND Crossmatch Leukocyte-Reduced Red Blood Cells Blood Bank Comment White Blood Count 7.0 TH/MM3 Red Blood Count 3.42 MIL/MM3 Mean Corpuscular Volume 98.6 FL Mean Corpuscular Hemoglobin 33.3 PG Mean Corpuscular Hemoglobin 33.8 % Concent Red Cell Distribution Width 12.8 % Platelet Count 173 TH/MM3 Mean Platelet Volume 7.5 FL Neutrophils (%) (Auto) 50.1 % Lymphocytes (%) (Auto) 38.6 % Monocytes (%) (Auto) 6.8 % Eosinophils (%) (Auto) 4.2 % Basophils (%) (Auto) 0.3 % Neutrophils # (Auto) 3.5 TH/MM3 Lymphocytes # (Auto) 2.7 TH/MM3 Monocytes # (Auto) 0.5 TH/MM3 Eosinophils # (Auto) 0.3 TH/MM3 Basophils # (Auto) 0.0 TH/MM3 CBC Comment DIFF FINAL Differential Comment Sodium Level 143 MEQ/L Potassium Level 4.3 MEQ/L Chloride Level 110 MEQ/L Carbon Dioxide Level 27.4 MEQ/L Anion Gap 6 MEQ/L Blood Urea Nitrogen 24 MG/DL Creatinine 0.65 MG/DL Estimat Glomerular Filtration 87 ML/MIN Rate Random Glucose 102 MG/DL Calcium Level 7.9 MG/DL Blood Type A POSITIVE Test 01/21/17 19:07 Hemoglobin 10.4 GM/DL Hematocrit 30.8 % Date/Time Procedure Status Source Growth 01/21/17 00:10 Urine Culture - Final Complete Urine Catheterized Urine Enterobacter Cloacae Physical Exam HEENT: Pupils round and reactive to light; normocephalic; atraumatic; no jaundice. Throat is clear. NECK: Neck is supple, no JVD, no lymphadenopathy. CHEST: Chest is clear to auscultation and percussion. CARDIAC: Regular rate and rhythm with no murmur gallop or rubs. ABDOMEN: Soft, nondistended, nontender; no hepatosplenomegaly; bowel sounds are present in all four quadrants. EXTREMITIES: No clubbing, cyanosis, or edema. SKIN: Normal; no rash; no jaundice. MATHEMATICIAN: ? mild confusion Assessment and Plan Assessment: (1) Gastric erosion (2) Gastric ulcer (3) Gastrointestinal hemorrhage with melena Plan Continue present therapy add carafate po follow up H/H today appears hemodynamicaally stable Efrem Tejada MD Jan 23, 2017 08:02
[2017-01-23] MEDS: busPIRone HCL 5 MG TAB PO SCH ×2 (09:38→20:24)
[2017-01-23] MEDS: cefTRIAXone INJ 1,000 MG in SODIUM CHLORIDE 0.9% INJ 100 ML IV SCH ×2 (09:38→14:46)
[2017-01-23] MEDS: FLUoxetine HCL 20 MG CAP PO SCH (09:38)
[2017-01-23] MEDS: PANTOPRAZOLE SODIUM 40 MG VIAL IV PUSH SCH ×3 (09:38→20:24)
[2017-01-23] MEDS: PHENYTOIN SODIUM 100 MG CAP PO SCH ×3 (09:39→17:04)
[2017-01-23] MEDS: SODIUM CHLORIDE 0.9% FLUSH 10 ML FLUSH IV FLUSH SCH ×2 (09:39→20:23)
[2017-01-23 09:57] LABS: AUTOMATED NEUTROPHIL # 3.5 TH/MM3 (1.8-7.7); BASOPHIL % 0.5 % (0.0-2.0); EOSINOPHIL # 0.2 TH/MM3 (0-0.4); EOSINOPHIL % 3.2 % (0.0-4.0); HEMATOCRIT 27.7 % (35.0-46.0); HEMO FLAGS DIFF FINAL; LYMPH % 27.3 % (9.0-44.0); LYMPHOCYTE # 1.5 TH/MM3 (1.0-4.8); MEAN CELL VOLUME 98.5 FL (80.0-100.0); MEAN CORPUSCULAR HEMOGLOBIN 34.2 PG (27.0-34.0); MEAN CORPUSCULAR HGB CONC 34.7 % (32.0-36.0); MONO % 6.7 % (0.0-8.0); NEUT % 62.3 % (16.0-70.0); PLATELET COUNT 128 TH/MM3 (150-450); RED BLOOD COUNT 2.81 MIL/MM3 (4.00-5.30); RED CELL DISTRIBUTION WIDTH 12.5 % (11.6-17.2); WHITE BLOOD COUNT 5.5 TH/MM3 (4.0-11.0)
[2017-01-23 10:16] LABS: BICARBONATE 23.9 MEQ/L (21.0-32.0); POTASSIUM 3.5 MEQ/L (3.5-5.1)
[2017-01-23] MEDS ORDERED: ACETAMINOPHEN 325 MG TAB PO PRN (11:30)
--- NOTE | 2017-01-23 11:40 | HHI.PR ---
Subjective Remarks Follow-up for GI bleed. Daughter at bedside. The patient feels well today. She denies abdominal pain. She is tolerating clear liquids. She is having a lot of belching. However, discussed with RN, per overnight reported patient had 2 episodes of dark bowel movements. The patient has had chronic right- sided headaches for several weeks now with reportedly normal imaging as outpatient. Currently planning up to follow with Dr. Graff as outpatient. Objective Vitals Vital Signs Date Time Temp Pulse Resp B/P Pulse Ox O2 Delivery O2 Flow Rate FiO2 01/23/17 08:11 96.7 76 20 148/68 95 01/23/17 06:07 18 01/23/17 03:41 98.0 66 21 121/53 96 01/22/17 23:29 98.0 64 20 141/78 96 01/22/17 20:03 98.2 56 22 140/93 96 01/22/17 16:42 98.8 74 18 141/72 97 01/22/17 12:57 98.8 68 21 147/62 97 I/O 01/22/17 01/22/17 01/22/17 01/23/17 01/23/17 01/23/17 07:00 15:00 23:00 07:00 15:00 23:00 Intake Total 120 ml Output Total 501 ml Balance 120 ml -501 ml Intake Oral 120 ml Output Urine Total 500 ml Stool Total 1 ml # Voids 3 # Bowel Movements 0 1 Result Diagram: 01/23/1717 01/23/17 0917 Imaging Last Impressions Abdomen/Pelvis CT 01/20/17 0000 Signed Impressions: Service Date/Time: Friday, January 20, 2017 23:41 - CONCLUSION: Suture in the right colon otherwise unremarkable CT scan of the abdomen and pelvis. No evidence of bowel obstruction. Marked atherosclerotic disease. Emil Sweeney MD Objective Remarks GENERAL: Well-developed well-nourished. In no acute distress. SKIN: Warm and dry. No lesions noted. HEENT: Normocephalic. Pupils equal and round. Mucous membranes pink and moist. CARDIOVASCULAR: Regular rate and rhythm. No murmur appreciated. RESPIRATORY: No accessory muscle use. Clear to auscultation. Breath sounds equal bilaterally. GASTROINTESTINAL: Abdomen soft, non-tender, nondistended. Bowel sounds x4. MUSCULOSKELETAL: No obvious deformities. No clubbing or cyanosis. No edema. NEUROLOGICAL: Awake and alert. No focal neurological deficits. Moves upper and lower extremities spontaneously. Normal speech. PSYCHIATRIC: Appropriate mood and odd affect; insight and judgment fair. Procedures EGD 01/21/[address] Wills shows gastric ulcer, gastric erosion, hiatal hernia , esophagitis, Schatzki's ring A/P Problem List: (1) GI bleed due to NSAIDs ICD Code: K92.2 Status: Acute Assessment and Plan 86-year-old female with history of colon cancer in 2002, hypertension, rheumatoid arthritis, seizure disorder, anxiety, presents with one-day history of hematochezia GI Bleeding, with Gastric Ulcer/Erosion, Esophagitis: reported BRBPR by family, however noted to have black stools in ED. Recently taking NSAIDs [id number] for low back pain. Reviewed: Hemoccult positive. CT abd/pelvis unremarkable. -Monitor serial H&H, Hgb has trended down from 12.6 --> 9.6. transfuse if indicated. -Consulted GI, patient known to Dr. Bang. -S/p EGD 01/21/[address] Wills shows gastric ulcer, gastric erosion, hiatal hernia, esophagitis, Schatzki's ring. -Clear liquid diet. Diet per GI. -GI added Carafate -IV Protonix twice a day -Reported dark stools overnight, follow GI recommendations and follow-up H&H. Seizure Disorder: chronic, Dilantin level therapeutic, continue patient's Dilantin. Hypertension: chronic, resume her metoprolol with hold parameters. UTI: UA with positive nitrites and leuks. Urine culture with Enterobacter Cloacae. Continue IV Rocephin for now. Anxiety: chronic, continue patient's fluoxetine and buspar. Hyperlipidemia: chronic, continue patient's statin. DVT Prophylaxis: teds/SCDs, avoid chemical prophylaxis secondary to GIB as above Discharge Planning Follow-up GI recommendations. Addendum 1800 patient with 2 further episodes of rectal bleeding today per RN. Requested RN contact. Reportedly on-call GI recommended following up with rounding GI tomorrow. Check stat H&H and transfuse if hemoglobin continues to drop significantly. Efren Martinez Jan 23, 2017 11:40
--- NOTE | 2017-01-23 11:53 | MR ---
cc: ZAID RICHARD MD, LOUIS M. MD LEE,JUDE WORRELL,ANTONIO Flores M.D. DATE 01/21/2017 PROCEDURE PERFORMED Esophagogastroduodenoscopy with biopsy DATE OF 1930 INDICATION FOR THE PROCEDURE The patient is an 86 year-old white female who presented yesterday initially with red blood per rectum. It was heme-positive. Overnight it became black stools. She does take NSAIDs and has a history of colon cancer - last colonoscopy was in 2012 and polyps were noted, but no diverticula seen. This procedure is being done to evaluate the upper GI tract for a source of the black stools. Her hemoglobin also drop, but has he stabilized at 9.9. ENDOSCOPIST Antonio Worrell MD ASSISTANTS Gastrointestinal laboratory personnel. ANESTHESIA Diprivan per COMMUNITY RELATIONS REPRESENTATIVE INTRAVENOUS MEDICATION See above. TYPE OF INSTRUMENT Pentex video adult gastroscope CONTINUOUS MONITORING The patient had routine blood pressure monitoring, pulse oximeter/oxygen, and cardiac monitoring. INFORMED CONSENT Obtained with full verbal understanding, the indication for procedure (see above), risks and complications (bleeding, perforation, infection, arrhythmias, mediastinitis, small possibility of , etc.), limitations (we may not see everything due to prep and anatomy especially if there is a lot of blood in the stomach or food is there, etc.), alternatives (upper GI, small bowel follow through, surgery, etc.), benefits (we can potentially see the entire esophagus, stomach, and part of the duodenum, and biopsy, cauterize, inject or dilate various lesions or abnormalities if needed, etc.) The consent was obtained from the daughter and all parties agreed to the procedure. DESCRIPTION OF PROCEDURE The patient was placed in the left lateral decubitus position. The above noted sedation was given in very slow incremental doses. Once an optimal level of sedation was achieved, then the above mentioned gastroscope was inserted and passed into the hypopharyngeal area, esophagus which was inspected in its entire length, through the stomach, which was seen in straight view, as well as retroflex view, and the gastric pool was suctioned. The stomach was fully insufflated. The pylorus was entered and the scope passed through the duodenal bulb, second and passed to the second portion of the duodenum. All air and secretion were suctioned prior to removal of the scope. FINDINGS 1. Esophagus: The gastroesophageal junction was approximately at 33 cm. There is a 1 cc hiatal hernia noted. At the GE junction, there was a Schatzki's ring with an erosion on it. The scope passed the Schatzki's ring with ease. The esophagus was somewhat presby-like, but no blood seen in the esophagus, no varies seen. 2. Stomach: Stomach seen on straight, as well as retroflex view. It did distend quite fully. No masses or polypoid lesions or gastric varices seen. There is no blood seen in the stomach. After the scope was advanced into the antrum, there were multiple superficial small gastric erosions which were not bleeding. In the immediate prepyloric area, there are four 3-4 mm non-bleeding clean-based ulcers. These ulcers were biopsied, as well as the gastric erosions on the way out. Biopsies were also taken from the angularis, fundus and body for H. Pylori. Again, these ulcers and erosions were not bleeding. 3. Duodenum: The bulb was patent. The duodenal bulb was unremarkable. As we tried to get around this sweep, it turns out the bulb was somewhat stenotic, but there were no obvious lesions there. The second portion was unremarkable. I could not reach the third portion. SPECIMEN Stomach TOLERANCE OF PROCEDURE The scope was totally withdrawn and the patient tolerated the procedure quite well. No immediate complications. Lungs, heart, vital signs and the rest of the physical exam is unchanged post procedure. The patient was transported in a stable state to the recovery area. IMPRESSION 1. Multiple prepyloric clean based gastric ulcers-biopsied. 2. Multiple gastric erosions-biopsied. 3. Esophageal erosion-left alone. 4. Hiatal hernia 5. Schatzki's ring 6. Presby-like esophagus 7. Post-bulbar stenosis PLAN 1. Continue PPI 2. Await pathology. 3. Clear liquid diet. 4. Dr. Tejada to see the patient tomorrow to make further recommendations. MD YOGESH Escalante/WIN /4:31 PM /11:38 AM
[2017-01-23] MEDS: SUCRALFATE 1 GM/10 ML CUP PO SCH ×3 (12:33→20:24)
[2017-01-23 18:52] LABS: HEMATOCRIT 28.9 % (35.0-46.0); REVIEW FLAG FINAL
[2017-01-23] MEDS: LATANOPROST 0.005% OPHT SOLN 2.5 ML BTL EACH EYE SCH (20:23)
[2017-01-23] MEDS: METOPROLOL TARTRATE 25 MG TAB PO SCH (20:24)
[2017-01-23] MEDS: ATORVASTATIN 20 MG TAB PO SCH (20:24)
[2017-01-24] VITALS (8 sets, daily range): BP systolic 122–169; BP diastolic 60–88; PULSE 51–89; RESP 18–21; TEMP 96.5–99.1; O2SAT 93–98
[2017-01-24] MEDS: SUCRALFATE 1 GM/10 ML CUP PO SCH ×4 (06:05→21:00)
[2017-01-24] MEDS: SODIUM CHLORIDE 0.9% FLUSH 10 ML FLUSH IV FLUSH SCH ×2 (10:31→20:59)
[2017-01-24] MEDS: FLUoxetine HCL 20 MG CAP PO SCH (10:31)
[2017-01-24] MEDS: busPIRone HCL 5 MG TAB PO SCH ×2 (10:31→21:00)
[2017-01-24] MEDS: PHENYTOIN SODIUM 100 MG CAP PO SCH ×3 (10:31→17:58)
[2017-01-24] MEDS: METOPROLOL TARTRATE 25 MG TAB PO SCH ×2 (10:31→21:00)
[2017-01-24] MEDS: PANTOPRAZOLE SODIUM 40 MG VIAL IV PUSH SCH ×2 (10:32→21:00)
[2017-01-24] MEDS: cefTRIAXone INJ 1,000 MG in SODIUM CHLORIDE 0.9% INJ 100 ML IV SCH (10:32)
[2017-01-24 10:49] LABS: HEMATOCRIT 27.2 % (35.0-46.0)
[2017-01-24 10:50] LABS: REVIEW FLAG FINAL
--- NOTE | 2017-01-24 12:39 | HHI.GIFU ---
Subjective Remarks alert nad NO active GI Bleed at present tolerating po Hb stable 9.9 Objective Vitals I&O Vital Signs Date Time Temp Pulse Resp B/P Pulse Ox O2 Delivery O2 Flow Rate FiO2 01/24/17 11:35 98.7 58 18 130/65 98 01/24/17 07:20 98.5 63 20 162/64 98 01/24/17 06:00 89 139/67 01/24/17 04:40 96.5 66 18 169/67 98 01/24/17 00:00 97.4 66 18 122/60 97 01/23/17 20:00 66 01/23/17 20:00 96.6 74 22 130/60 99 01/23/17 16:32 98.4 75 18 161/71 96 01/23/17 15:50 97.3 69 18 152/66 96 01/23/17 13:28 98.2 87 20 174/73 96 01/23/17 12:59 77 I/O 01/23/17 01/23/17 01/23/17 01/24/17 01/24/17 01/24/17 07:00 15:00 23:00 07:00 15:00 23:00 Intake Total 240 ml Output Total 501 ml Balance -501 ml 240 ml Intake Oral 240 ml Output Urine Total 500 ml Stool Total 1 ml # Voids 1 1 # Bowel Movements 1 0 Laboratory Laboratory Tests Test 01/23/17 01/24/17 18:25 10:00 Hemoglobin 10.0 9.9 Hematocrit 28.9 27.2 Date/Time Procedure Status Source Growth 01/21/17 00:10 Urine Culture - Final Complete Urine Catheterized Urine Enterobacter Cloacae Physical Exam HEENT: Pupils round and reactive to light; normocephalic; atraumatic; no jaundice. Throat is clear. NECK: Neck is supple, no JVD, no lymphadenopathy. CHEST: Chest is clear to auscultation and percussion. CARDIAC: Regular rate and rhythm with no murmur gallop or rubs. ABDOMEN: Soft, nondistended, nontender; no hepatosplenomegaly; bowel sounds are present in all four quadrants. EXTREMITIES: No clubbing, cyanosis, or edema. SKIN: Normal; no rash; no jaundice. Assessment and Plan Assessment: (1) Gastric erosion (2) Gastric ulcer (3) Gastrointestinal hemorrhage with melena Plan Continue present therapy w ppi and carafate.... advance diet as tolerated appears stable Dc in Am...if recurrent bleed occurs could consider gi bleed scan as well Efrem Tejada MD Jan 24, 2017 12:39
--- NOTE | 2017-01-24 14:57 | HHI.PR ---
Subjective Remarks Follow-up for GI bleed. Patient seen and examined laying in bed, Daughter at bedside. The patient feels well today. She denies abdominal pain, or bloody stools. She is tolerating Full liquids. Discussed with patient and Daughter about GI plan to keep patient till am for follow up labs. Objective Vitals Vital Signs Date Time Temp Pulse Resp B/P Pulse Ox O2 Delivery O2 Flow Rate FiO2 01/24/17 11:35 98.7 58 18 130/65 98 01/24/17 07:20 98.5 63 20 162/64 98 01/24/17 06:00 89 139/67 01/24/17 04:40 96.5 66 18 169/67 98 01/24/17 00:00 97.4 66 18 122/60 97 01/23/17 20:00 66 01/23/17 20:00 96.6 74 22 130/60 99 01/23/17 16:32 98.4 75 18 161/71 96 01/23/17 15:50 97.3 69 18 152/66 96 I/O 01/23/17 01/23/17 01/23/17 01/24/17 01/24/17 01/24/17 07:00 15:00 23:00 07:00 15:00 23:00 Intake Total 240 ml Output Total 501 ml Balance -501 ml 240 ml Intake Oral 240 ml Output Urine Total 500 ml Stool Total 1 ml # Voids 1 1 # Bowel Movements 1 0 Result Diagram: 01/24/17 1000 01/23/17 0917 Imaging Last Impressions Abdomen/Pelvis CT 01/20/17 0000 Signed Impressions: Service Date/Time: Friday, January 20, 2017 23:41 - CONCLUSION: Suture in the right colon otherwise unremarkable CT scan of the abdomen and pelvis. No evidence of bowel obstruction. Marked atherosclerotic disease. Emil Sweeney MD Objective Remarks GENERAL: Well-developed well-nourished. In no acute distress. SKIN: Warm and dry. No lesions noted. HEENT: Normocephalic. Pupils equal and round. Mucous membranes pink and moist. CARDIOVASCULAR: Regular rate and rhythm. No murmur appreciated. RESPIRATORY: No accessory muscle use. Clear to auscultation. Breath sounds equal bilaterally. GASTROINTESTINAL: Abdomen soft, non-tender, nondistended. Bowel sounds x4. MUSCULOSKELETAL: No obvious deformities. No clubbing or cyanosis. No edema. NEUROLOGICAL: Awake and alert. Has some dementia, but able to communicate. No focal neurological deficits. Moves upper and lower extremities spontaneously. Normal speech. PSYCHIATRIC: Appropriate mood and odd affect; insight and judgment fair. Procedures EGD 01/21/[address] Wills shows gastric ulcer, gastric erosion, hiatal hernia , esophagitis, Schatzki's ring Medications and IVs Current Medications Medications (Trade) Dose Ordered Sig/Justen Route Start Time Stop Time Status Last Admin (NS Flush) 2 ml UNSCH PRN IV FLUSH 01/20/17 22:30 (NS Flush) 2 ml BID IV FLUSH 01/21/17 09:00 01/24/17 10:31 (Zofran Inj) 4 mg Q6H PRN IVP 01/20/17 22:30 (Narcan Inj) 0.4 mg UNSCH PRN IV 01/20/17 22:30 (Lipitor) 20 mg HS PO 01/21/17 21:00 01/23/17 20:24 (Buspar) 7.5 mg BID PO 01/21/17 09:00 01/24/17 10:31 (PROzac) 20 mg DAILY PO 01/21/17 09:00 01/24/17 10:31 (Xalatan 0.005% Opth Soln) 1 drop HS EACH EYE 01/21/17 21:00 01/23/17 20:23 (Dilantin) 100 mg TID PO 01/21/17 09:00 01/24/17 13:33 Miscellaneous 1 ea 1 ea UNSCH PRN OTHER 01/21/17 03:15 (Rocephin Inj/NS Inj) 100 ml @ 200 mls/hr Q24H IV 01/21/17 09:00 01/24/17 10:32 (Protonix Inj) 40 mg Q12H IV PUSH 01/22/17 21:00 01/24/17 10:32 (Carafate Liq) 1 gm ACHS PO 01/23/17 11:00 01/24/17 10:30 (Tylenol) 650 mg Q4H PRN PO 01/23/17 11:30 01/23/17 20:28 (Lopressor) 25 mg BID PO 01/23/17 21:00 01/24/17 10:31 A/P Problem List: (1) GI bleed due to NSAIDs ICD Code: K92.2 Status: Acute Assessment and Plan 86-year-old female with history of colon cancer in 2002, hypertension, rheumatoid arthritis, seizure disorder, anxiety, presents with one-day history of hematochezia GI Bleeding, with Gastric Ulcer/Erosion, Esophagitis: reported BRBPR by family, however noted to have black stools in ED. Recently taking NSAIDs [id number] for low back pain. Reviewed: Hemoccult positive. CT abd/pelvis unremarkable. -Monitor serial H&H, Hgb has trended down from 12.6 --> 9.6-->10-->9.9. transfuse if indicated. H&H in AM -Consulted GI, patient known to Dr. Bang. Dr Tejada wantst to cont ppi and carafate, and to DC in AM if hgb remains stable, and consider bleeding scan if bleeding reoccurs -S/p EGD 01/21/[address] Wills shows gastric ulcer, gastric erosion, hiatal hernia, esophagitis, Schatzki's ring. -Advance diet as tolerated, will advance to heart healthy for dinner -Cont Carafate -Cont IV Protonix twice a day Seizure Disorder: chronic, Dilantin level therapeutic, continue patient's Dilantin. Hypertension: chronic, resume her metoprolol with hold parameters. UTI: UA with positive nitrites and leuks. Urine culture with Enterobacter Cloacae. Continue IV Rocephin for now. Anxiety: chronic, continue patient's fluoxetine and buspar. Hyperlipidemia: chronic, continue patient's statin. DVT Prophylaxis: teds/SCDs, avoid chemical prophylaxis secondary to GIB as above Discussed with patient, patients daughter and Aga Martínez Jan 24, 2017 14:57
[2017-01-24] MEDS: LATANOPROST 0.005% OPHT SOLN 2.5 ML BTL EACH EYE SCH (21:01)
[2017-01-24] MEDS: ATORVASTATIN 20 MG TAB PO SCH (21:01)
[2017-01-25] VITALS (7 sets, daily range): BP systolic 160–181; BP diastolic 69–94; PULSE 56–65; RESP 17–21; TEMP 97.8–98.6; O2SAT 96–99
[2017-01-25] MEDS: SUCRALFATE 1 GM/10 ML CUP PO SCH ×3 (06:36→17:13)
[2017-01-25 08:29] LABS: HEMATOCRIT 28.1 % (35.0-46.0); REVIEW FLAG FINAL
[2017-01-25] MEDS: SODIUM CHLORIDE 0.9% FLUSH 10 ML FLUSH IV FLUSH SCH ×2 (09:04→21:00)
[2017-01-25] MEDS: PANTOPRAZOLE SODIUM 40 MG VIAL IV PUSH SCH (09:05)
[2017-01-25] MEDS: busPIRone HCL 5 MG TAB PO SCH (09:05)
[2017-01-25] MEDS: FLUoxetine HCL 20 MG CAP PO SCH (09:06)
[2017-01-25] MEDS: METOPROLOL TARTRATE 25 MG TAB PO SCH (09:06)
[2017-01-25] MEDS: PHENYTOIN SODIUM 100 MG CAP PO SCH ×3 (09:06→18:10)
[2017-01-25] MEDS: cefTRIAXone INJ 1,000 MG in SODIUM CHLORIDE 0.9% INJ 100 ML IV SCH (09:06)
[2017-01-25] MEDS ORDERED: PROT40TA PO (10:14)
[2017-01-25] MEDS ORDERED: SUCR1S PO (10:14)
--- NOTE | 2017-01-25 10:19 | HHI.PR ---
Subjective Remarks Follow-up for GI bleeding. Discussed with RN, no further bleeding noted overnight in stools. The patient feels well this time. The patient is waiting for her daughter to come to the hospital. Attempted to call the patient's daughter by phone, left a message. Objective Vitals Vital Signs Date Time Temp Pulse Resp B/P Pulse Ox O2 Delivery O2 Flow Rate FiO2 01/25/17 08:10 98.6 57 17 172/84 98 01/25/17 06:27 98.2 60 21 179/94 96 01/25/17 00:35 98.0 65 20 181/83 98 01/25/17 00:00 62 01/24/17 19:51 99.1 61 21 147/66 96 01/24/17 15:36 97.7 76 18 154/88 93 01/24/17 15:11 51 01/24/17 11:35 98.7 58 18 130/65 98 I/O 01/24/17 01/24/17 01/24/17 01/25/17 01/25/17 01/25/17 07:00 15:00 23:00 07:00 15:00 23:00 # Voids 1 # Bowel Movements 0 Result Diagram: 01/25/17 0645 01/23/17 0917 Objective Remarks GENERAL: Well-developed well-nourished. In no acute distress. SKIN: Warm and dry. No lesions noted. HEENT: Normocephalic. Pupils equal and round. Mucous membranes pink and moist. CARDIOVASCULAR: Regular rate and rhythm. No murmur appreciated. RESPIRATORY: No accessory muscle use. Clear to auscultation. Breath sounds equal bilaterally. GASTROINTESTINAL: Abdomen soft, non-tender, nondistended. Bowel sounds x4. MUSCULOSKELETAL: No obvious deformities. No clubbing or cyanosis. No edema. NEUROLOGICAL: Awake and alert. No focal neurological deficits. Moves upper and lower extremities spontaneously. Normal speech. PSYCHIATRIC: Appropriate mood and odd affect; insight and judgment fair. Procedures EGD 01/21/[address] Wills shows gastric ulcer, gastric erosion, hiatal hernia , esophagitis, Schatzki's ring A/P Problem List: (1) GI bleed due to NSAIDs ICD Code: K92.2 Status: Acute Assessment and Plan 86-year-old female with history of colon cancer in 2002, hypertension, rheumatoid arthritis, seizure disorder, anxiety, presents with one-day history of hematochezia GI Bleeding, with Gastric Ulcer/Erosion, Esophagitis: reported BRBPR by family, however noted to have black stools in ED. Recently taking NSAIDs [id number] for low back pain. Reviewed: Hemoccult positive. CT abd/pelvis unremarkable. -Monitor serial H&H, Hgb has trended down from 12.6 --> 9.6. transfuse if indicated. -Consulted GI, patient known to Dr. Bang. -S/p EGD 01/21/[address] Wills shows gastric ulcer, gastric erosion, hiatal hernia, esophagitis, Schatzki's ring. -Diet advanced, patient tolerating -GI added Carafate -Continue Protonix -Bleeding improved. Cleared by GI for discharge. Seizure Disorder: chronic, Dilantin level therapeutic, continue patient's Dilantin. Hypertension: chronic, not well controlled. Continue home metoprolol. Consider adding nifedipine. UTI: UA with positive nitrites and leuks. Urine culture with Enterobacter Cloacae. Received IV Rocephin, continue course of Cipro at discharge. Anxiety: chronic, continue patient's fluoxetine and buspar. Hyperlipidemia: chronic, continue patient's statin. DVT Prophylaxis: teds/SCDs, avoid chemical prophylaxis secondary to GIB as above Discharge Planning Discharge plan to home with [facility] today if blood pressure is better and outpatient arrangements are made. We'll follow up with case management and patient's daughter. Efren Martinez Jan 25, 2017 10:19
[2017-01-25] MEDS ORDERED: CIPR250T52 PO (12:42)
--- NOTE | 2017-01-25 12:45 | HHI.DS ---
Discharge Summary Admission Date Jan 22, 2017 at 17:22 Discharge Date: Jan 25, 2017 Admitting Diagnosis hematochezia (1) Gastrointestinal hemorrhage with melena ICD Code: K92.1 Diagnosis: Principal (2) HTN (hypertension) ICD Code: I10 Diagnosis: Secondary (3) UTI (urinary tract infection) ICD Code: N39.0 Diagnosis: Secondary Procedures EGD 01/21/[address] Wills shows gastric ulcer, gastric erosion, hiatal hernia , esophagitis, Schatzki's ring Brief History - From Admission History from patient, ER provider communication, and review of medical records. Patient's daughter was at the bedside in the ER and did speak to the ER staff. According to the daughter, patient had large flora bright red blood 2 today. Daughter was worried because patient was complaining of lower back pain and therefore she gave 2 Aleve in the morning and 2 at night for the past 3 days. She never had previous history of GI bleeds. However she did have history of colon cancer in 2002 and had colonoscopy last in 2011. Patient herself is elderly lady who is extremely hard of hearing. She tells me that she was having rectal pain. She reports she has blood in stool but she thinks that it is bright red blood. She denies any chest pains/shortness of breath/dizziness/syncopal episodes. She denies any urinary burning or pain on urination. While in emergency room, patient did not have any episodes of bleeding. However upon her arrival to observation unit, patient was noted to have black color stool in her panties. At the time of my exam as well, patient does have black colored stool in her panties. Her heart rate remains to be in the 60s. She is on beta blockers at home CBC/BMP: 01/25/17 0645 01/23/17 0917 Significant Findings Laboratory Tests Test 01/23/17 01/23/17 01/24/17 01/25/17 09:17 18:25 10:00 06:45 Red Blood Count 2.81 MIL/MM3 (4.00-5.30) Hemoglobin 9.6 GM/DL 10.0 GM/DL 9.9 GM/DL 9.9 GM/DL (11.6-15.3) (11.6-15.3) (11.6-15.3) (11.6-15.3) Hematocrit 27.7 % 28.9 % 27.2 % 28.1 % (35.0-46.0) (35.0-46.0) (35.0-46.0) (35.0-46.0) Mean Corpuscular Hemoglobin 34.2 PG (27.0-34.0) Platelet Count 128 TH/MM3 (150-450) Chloride Level 110 MEQ/L (98-107) Random Glucose 109 MG/DL (74-106) Calcium Level 8.1 MG/DL (8.5-10.1) Imaging Last Impressions Abdomen/Pelvis CT 01/20/17 0000 Signed Impressions: Service Date/Time: Friday, January 20, 2017 23:41 - CONCLUSION: Suture in the right colon otherwise unremarkable CT scan of the abdomen and pelvis. No evidence of bowel obstruction. Marked atherosclerotic disease. Emil Sweeney MD PE at Discharge GENERAL: Well-developed well-nourished. In no acute distress. SKIN: Warm and dry. No lesions noted. HEENT: Normocephalic. Pupils equal and round. Mucous membranes pink and moist. CARDIOVASCULAR: Regular rate and rhythm. No murmur appreciated. RESPIRATORY: No accessory muscle use. Clear to auscultation. Breath sounds equal bilaterally. GASTROINTESTINAL: Abdomen soft, non-tender, nondistended. Bowel sounds x4. MUSCULOSKELETAL: No obvious deformities. No clubbing or cyanosis. No edema. NEUROLOGICAL: Awake and alert. Has some dementia, but able to communicate. No focal neurological deficits. Moves upper and lower extremities spontaneously. Normal speech. PSYCHIATRIC: Appropriate mood and odd affect; insight and judgment fair. Pt update on day of discharge Discussed with patient's daughter at bedside. 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 Daughter is reluctant, but understanding and agreeable for [facility]. BP is better today. Instructed patient and daughter to follow-up with PCP this week for further BP monitoring. Provided education on gastric ulcer diet. Hospital Course 86-year-old female with history of colon cancer in 2002, hypertension, rheumatoid arthritis, seizure disorder, anxiety, presents with one-day history of hematochezia GI Bleeding, with Gastric Ulcer/Erosion, Esophagitis: reported BRBPR by family, however noted to have black stools in ED. Recently taking NSAIDs [id number] for low back pain. Reviewed: Hemoccult positive. CT abd/pelvis unremarkable. Hgb had trended down from 12.6 --> 9.6. -Consulted GI, patient known to Dr. Bang. -S/p EGD 01/21/[address] Wills shows gastric ulcer, gastric erosion, hiatal hernia, esophagitis, Schatzki's ring. -Diet advanced, patient tolerating -GI added Carafate -Continue Protonix -Bleeding improved. Hemoglobin stable. Cleared by GI for discharge. Hypertension: chronic, not optimally controlled. Continue home metoprolol. Continue outpatient PCP follow-up. UTI: UA with positive nitrites and leuks. Urine culture with Enterobacter Cloacae. Received IV Rocephin 6 days, complete 7 day antibiotic course with oral Cipro. Pt Condition on Discharge: Stable Discharge Disposition: Disch w/ Home Health Serv Discharge Time: > 30 minutes Discharge Instructions DIET: Follow Instructions for: Heart Healthy Diet Activities you can perform: Regular-No Restrictions Follow up Referrals: Gastroenterology - 10 Days with Radhames Bang MD PCP Follow-up - 2-3 Days with Niya Abbott M.d. New Medications: Ciprofloxacin (Cipro) 250 Mg Tab 250 MG PO BID Infection #2 Ref 0 TAB Pantoprazole (Protonix) 40 Mg Tab 40 MG PO DAILY Ulcer Prevention #30 Ref 0 TAB Sucralfate Liq (Sucralfate Liq) 1 Gm/10 Ml Ester 1 GM PO ACHS Reflux #1 BOTTLE Continued Medications: Alendronate (Alendronate) 70 Mg Tab 70 MG PO Q7D Osteporosis Treatment #4 Ref 0 TAB Atorvastatin (Atorvastatin) 20 Mg Tab 20 MG PO HS Cholesterol Management #30 Ref 0 TAB Buspirone (Buspirone) 7.5 Mg Tab 7.5 MG PO BID Anxiety Ref 0 TAB Fluoxetine (Fluoxetine) 20 Mg Cap 20 MG PO DAILY #30 Ref 0 CAP Latanoprost Opth Drops (Latanoprost Opth Drops) 0.005% Drops 1 DROP EACH EYE HS Refrigerate until opened. Glaucoma #2.5 Ref 0 ML Metoprolol Tartrate (Metoprolol Tartrate) 25 Mg Tab 25 MG PO BID #60 Ref 0 TAB Phenytoin Extended (Dilantin) 100 Mg Cap 100 MG PO TID Control Seizures #90 Ref 0 CAP Efren Martinez Jan 25, 2017 12:45
[2017-01-25] MEDS: LATANOPROST 0.005% OPHT SOLN 2.5 ML BTL EACH EYE SCH (21:00)
--- NOTE | 2017-01-25 22:15 | RADRPT ---
EXAM DATE/TIME: 01/25/2017 20:15 [facility] COMPARISON: No previous studies available for comparison. INDICATIONS : Rectal bleeding for two days. DOSE: 21 mCi Tc99m Ultratag labeled red blood cells IV IMAGIN min. MEDICAL HISTORY : Hypertension. Carcinoma, colon. Gastroesophageal reflux disease. Dementia. SURGICAL HISTORY : Cataracts. ENCOUNTER: Initial ACUITY: 1 day PAIN SCALE: 0/10 LOCATION: Abdomen. TECHNIQUE: Following the modified in vitro labeling of autologous red cells, flow study followed by dynamic cont inuous images were acquired for 100 minutes. FINDINGS: BIODISTRIBUTION: There is a very good labeling of red cells without significant uptake in the gastric wall. There is good delineation of the blood pool of the spleen and abdominal vessels. BLEEDING: No episodes of active GI bleeding are observed. CONCLUSION: Negative GI bleeding study. Richard Hubbard MD on January 25, 2017 at 22:12 Board Certified Radiologist. This report was verified electronically.
[2017-01-25 23:11] LABS: HEMATOCRIT 27.9 % (35.0-46.0)
[2017-01-26] MEDS: busPIRone HCL 5 MG TAB PO SCH ×2 (00:28→07:57)
[2017-01-26] MEDS: METOPROLOL TARTRATE 25 MG TAB PO SCH ×2 (00:29→07:57)
[2017-01-26] MEDS: PANTOPRAZOLE SODIUM 40 MG VIAL IV PUSH SCH ×2 (00:29→07:58)
[2017-01-26] MEDS: ATORVASTATIN 20 MG TAB PO SCH (00:29)
[2017-01-26] MEDS: SUCRALFATE 1 GM/10 ML CUP PO SCH ×2 (00:29→06:12)
[2017-01-26 05:54] LABS: HEMATOCRIT 28.3 % (35.0-46.0); REVIEW FLAG FINAL
[2017-01-26] MEDS: cefTRIAXone INJ 1,000 MG in SODIUM CHLORIDE 0.9% INJ 100 ML IV SCH (07:56)
[2017-01-26] MEDS: PHENYTOIN SODIUM 100 MG CAP PO SCH (07:56)
[2017-01-26] MEDS: FLUoxetine HCL 20 MG CAP PO SCH (07:57)
[2017-01-26] MEDS: SODIUM CHLORIDE 0.9% FLUSH 10 ML FLUSH IV FLUSH SCH (07:58)
[2017-01-26 08:00] VITALS: BP 151/64; PULSE 62; RESP 18; TEMP 97.9; O2SAT 98
[2017-01-26] MEDS ORDERED: LISINOPRIL 5 MG TAB PO SCH (09:00)
--- NOTE | 2017-01-26 09:50 | HHI.PR ---
Subjective Remarks Follow-up for GI bleeding. Patient was be discharged yesterday, but prior to leaving the hospital she had another episode of black stools. Today the patient denies any abdominal discomfort. She's not sure her bowel movements overnight. Discussed with RN, no further dark stools reported overnight. Patient denies any pain. She does not like the food. Objective Vitals Vital Signs Date Time Temp Pulse Resp B/P Pulse Ox O2 Delivery O2 Flow Rate FiO2 01/26/17 08:00 97.9 62 18 151/64 98 01/25/17 15:35 98.5 61 17 163/71 98 01/25/17 11:01 97.8 56 18 160/69 99 Result Diagram: 01/26/17 0500 01/23/17 0917 Objective Remarks GENERAL: Well-developed well-nourished. In no acute distress. Hard of hearing. SKIN: Warm and dry. No lesions noted. HEENT: Normocephalic. Pupils equal and round. Mucous membranes pink and moist. CARDIOVASCULAR: Regular rate and rhythm. No murmur appreciated. RESPIRATORY: No accessory muscle use. Clear to auscultation. Breath sounds equal bilaterally. GASTROINTESTINAL: Abdomen soft, non-tender, nondistended. Bowel sounds x4. MUSCULOSKELETAL: No obvious deformities. No clubbing or cyanosis. No edema. NEUROLOGICAL: Awake and alert. No focal neurological deficits. Moves upper and lower extremities spontaneously. Normal speech. PSYCHIATRIC: Appropriate mood and odd affect; insight and judgment fair to poor. Procedures EGD 01/21/[address] Wills shows gastric ulcer, gastric erosion, hiatal hernia , esophagitis, Schatzki's ring A/P Problem List: (1) Gastrointestinal hemorrhage with melena ICD Code: K92.1 Status: Acute (2) HTN (hypertension) ICD Code: I10 Status: Acute (3) UTI (urinary tract infection) ICD Code: N39.0 Status: Acute Assessment and Plan 86-year-old female with history of colon cancer in 2002, hypertension, rheumatoid arthritis, seizure disorder, anxiety, presents with one-day history of hematochezia GI Bleeding, with Gastric Ulcer/Erosion, Esophagitis: reported BRBPR by family, however noted to have black stools in ED. Recently taking NSAIDs [id number] for low back pain. Reviewed: Hemoccult positive. CT abd/pelvis unremarkable. -Monitor serial H&H, Hgb has trended down from 12.6 --> 9.6. transfuse if indicated. -Consulted GI, patient known to Dr. Bang. -S/p EGD 01/21/[address] Wills shows gastric ulcer, gastric erosion, hiatal hernia, esophagitis, Schatzki's ring. -Diet advanced, patient tolerating -GI added Carafate -Continue Protonix -Additional episode of bleeding 01/25, Hemoccult positive. -GI ordered bleeding scan which was negative -Hemoglobin remains stable, virtually unchanged since 01/21. -Follow-up GI recommendations Seizure Disorder: chronic, Dilantin level therapeutic, continue patient's Dilantin. Hypertension: chronic, not well controlled. Continue home metoprolol. Add lisinopril. UTI: UA with positive nitrites and leuks. Urine culture with Enterobacter Cloacae. Received IV Rocephin x7 days, treated. Anxiety: chronic, continue patient's fluoxetine and buspar. Hyperlipidemia: chronic, continue patient's statin. DVT Prophylaxis: teds/SCDs, avoid chemical prophylaxis secondary to GIB as above Written by Efren Martinez, acting as scribe for Dr. Friedman on 01/26/17 at 09:50. This note was transcribed by nona TENORIO. I, Dr. Devi Friedman personally performed the history, physical exam, and medical decision making; and confirmed the accuracy of the information in the transcribed note. Authenticated by Dr. Devi Friedman on 01/26/17 at 09:50. Discharge Planning Although the patient continues to have episodes of possible GI bleeding, hemoglobin remains stable as does the patient. If GI agreeable, possible discharge for close follow-up with GI as outpatient. Efren Martinez Jan 26, 2017 09:50 Devi Friedman MD Jan 26, 2017 17:48
--- NOTE | 2017-01-26 10:28 | HHI.GIFU ---
Subjective Remarks ALERT NAD FEEL OK HAD DARK/ AND OR MARROON STOOLS YESTERDAY HB REMAINS SAME AT 9.9 HAD GIB SCAN YESTERDAY THAT WAS NEGATIVE.. Objective Vitals I&O Vital Signs Date Time Temp Pulse Resp B/P Pulse Ox O2 Delivery O2 Flow Rate FiO2 01/26/17 08:00 97.9 62 18 151/64 98 01/25/17 15:35 98.5 61 17 163/71 98 01/25/17 11:01 97.8 56 18 160/69 99 Laboratory Laboratory Tests Test 01/25/17 01/26/17 22:40 05:00 Hemoglobin 9.8 9.9 Hematocrit 27.9 28.3 Date/Time Procedure Status Source Growth 01/25/17 15:15 Stool Occult Blood (DORIS) - Final Complete Stool Stool HEMOCCULT POSITIVE Imaging Last Impressions GI Bleed Scan Nuclear Medicine 01/25/17 0000 Signed Impressions: Service Date/Time: Wednesday, January 25, 2017 20:15 - CONCLUSION: Negative GI bleeding study. Richard Hubbard MD Abdomen/Pelvis CT 01/20/17 0000 Signed Impressions: Service Date/Time: Friday, January 20, 2017 23:41 - CONCLUSION: Suture in the right colon otherwise unremarkable CT scan of the abdomen and pelvis. No evidence of bowel obstruction. Marked atherosclerotic disease. Emil Sweeney MD Laboratory Tests Test 01/21/17 01/23/17 01/26/17 02:33 09:17 05:00 Blood Type A POSITIVE Crossmatch Leukocyte-Reduced Red Blood Cells Blood Bank Comment White Blood Count 5.5 TH/MM3 Red Blood Count 2.81 MIL/MM3 Mean Corpuscular Volume 98.5 FL Mean Corpuscular Hemoglobin 34.2 PG Mean Corpuscular Hemoglobin 34.7 % Concent Red Cell Distribution Width 12.5 % Platelet Count 128 TH/MM3 Mean Platelet Volume 8.0 FL Neutrophils (%) (Auto) 62.3 % Lymphocytes (%) (Auto) 27.3 % Monocytes (%) (Auto) 6.7 % Eosinophils (%) (Auto) 3.2 % Basophils (%) (Auto) 0.5 % Neutrophils # (Auto) 3.5 TH/MM3 Lymphocytes # (Auto) 1.5 TH/MM3 Monocytes # (Auto) 0.4 TH/MM3 Eosinophils # (Auto) 0.2 TH/MM3 Basophils # (Auto) 0.0 TH/MM3 CBC Comment DIFF FINAL Differential Comment Sodium Level 144 MEQ/L Potassium Level 3.5 MEQ/L Chloride Level 110 MEQ/L Carbon Dioxide Level 23.9 MEQ/L Anion Gap 10 MEQ/L Blood Urea Nitrogen 11 MG/DL Creatinine 0.50 MG/DL Estimat Glomerular Filtration 118 ML/MIN Rate Random Glucose 109 MG/DL Calcium Level 8.1 MG/DL Hemoglobin 9.9 GM/DL Hematocrit 28.3 % Physical Exam NECK: Neck is supple, no JVD, no lymphadenopathy. CHEST: Chest is clear to auscultation and percussion. CARDIAC: Regular rate and rhythm with no murmur gallop or rubs. ABDOMEN: Soft, nondistended, nontender; no hepatosplenomegaly; bowel sounds are present in all four quadrants. EXTREMITIES: No clubbing, cyanosis, or edema. SKIN: Normal; no rash; no jaundice. Assessment and Plan Assessment: (1) Gastric erosion (2) Gastric ulcer (3) Gastrointestinal hemorrhage with melena Plan PERFORMED DIGITAL RECTAL EXAM.....STOOL NOT MELENOTIC BUT DARK GREEN/ BROWN NO OBVIOUS BLOOD SEEN...LIQUID SOFT STOOL EVACUATED... MULTIPLE EXCORIATONS AROUND ANAL AREA PROBABLY ACCOUNT FOR HEM POS STOOLS...RECOMMNED BARRIER CREAM TO ANAL REGION BID PROBABLY OK FOR DC will discuss w family as well...thanks Efrem Tejada MD Jan 26, 2017 10:28
--- NOTE | 2017-01-26 10:42 | HHI.DS ---
Discharge Summary Admission Date Jan 22, 2017 at 17:22 Discharge Date: Jan 26, 2017 Admitting Diagnosis hematochezia (1) Gastrointestinal hemorrhage with melena ICD Code: K92.1 Diagnosis: Principal (2) HTN (hypertension) ICD Code: I10 Diagnosis: Secondary (3) UTI (urinary tract infection) ICD Code: N39.0 Diagnosis: Secondary Procedures EGD 01/21/[address] Wills shows gastric ulcer, gastric erosion, hiatal hernia , esophagitis, Schatzki's ring Brief History - From Admission History from patient, ER provider communication, and review of medical records. Patient's daughter was at the bedside in the ER and did speak to the ER staff. According to the daughter, patient had large flora bright red blood 2 today. Daughter was worried because patient was complaining of lower back pain and therefore she gave 2 Aleve in the morning and 2 at night for the past 3 days. She never had previous history of GI bleeds. However she did have history of colon cancer in 2002 and had colonoscopy last in 2011. Patient herself is elderly lady who is extremely hard of hearing. She tells me that she was having rectal pain. She reports she has blood in stool but she thinks that it is bright red blood. She denies any chest pains/shortness of breath/dizziness/syncopal episodes. She denies any urinary burning or pain on urination. While in emergency room, patient did not have any episodes of bleeding. However upon her arrival to observation unit, patient was noted to have black color stool in her panties. At the time of my exam as well, patient does have black colored stool in her panties. Her heart rate remains to be in the 60s. She is on beta blockers at home CBC/BMP: 01/26/17 0500 01/23/17 0917 Significant Findings Laboratory Tests Test 01/23/17 01/24/17 01/25/17 01/25/17 18:25 10:00 06:45 22:40 Hemoglobin 10.0 GM/DL 9.9 GM/DL 9.9 GM/DL 9.8 GM/DL (11.6-15.3) (11.6-15.3) (11.6-15.3) (11.6-15.3) Hematocrit 28.9 % 27.2 % 28.1 % 27.9 % (35.0-46.0) (35.0-46.0) (35.0-46.0) (35.0-46.0) Test 01/26/17 05:00 Hemoglobin 9.9 GM/DL (11.6-15.3) Hematocrit 28.3 % (35.0-46.0) Imaging Last Impressions GI Bleed Scan Nuclear Medicine 01/25/17 0000 Signed Impressions: Service Date/Time: Wednesday, January 25, 2017 20:15 - CONCLUSION: Negative GI bleeding study. Richard Hubbard MD Abdomen/Pelvis CT 01/20/17 0000 Signed Impressions: Service Date/Time: Friday, January 20, 2017 23:41 - CONCLUSION: Suture in the right colon otherwise unremarkable CT scan of the abdomen and pelvis. No evidence of bowel obstruction. Marked atherosclerotic disease. Emil Sweeney MD PE at Discharge GENERAL: Well-developed well-nourished. In no acute distress. Hard of hearing. SKIN: Warm and dry. No lesions noted. HEENT: Normocephalic. Pupils equal and round. Mucous membranes pink and moist. CARDIOVASCULAR: Regular rate and rhythm. No murmur appreciated. RESPIRATORY: No accessory muscle use. Clear to auscultation. Breath sounds equal bilaterally. GASTROINTESTINAL: Abdomen soft, non-tender, nondistended. Bowel sounds x4. MUSCULOSKELETAL: No obvious deformities. No clubbing or cyanosis. No edema. NEUROLOGICAL: Awake and alert. No focal neurological deficits. Moves upper and lower extremities spontaneously. Normal speech. PSYCHIATRIC: Appropriate mood and odd affect; insight and judgment fair to poor. Pt update on day of discharge Cleared by GI for discharge. Hospital Course 86-year-old female with history of colon cancer in 2002, hypertension, rheumatoid arthritis, seizure disorder, anxiety, presents with one-day history of hematochezia GI Bleeding, with Gastric Ulcer/Erosion, Esophagitis: reported BRBPR by family, however noted to have black stools in ED. Recently taking NSAIDs [id number] for low back pain. Reviewed: Hemoccult positive. CT abd/pelvis unremarkable. -Monitor serial H&H, Hgb has trended down from 12.6 --> 9.6. transfuse if indicated. -Consulted GI, patient known to Dr. Bang. -S/p EGD 01/21/[address] Wills shows gastric ulcer, gastric erosion, hiatal hernia, esophagitis, Schatzki's ring. -Diet advanced, patient tolerating -GI added Carafate -Continue Protonix -Additional episode of bleeding 01/25, Hemoccult positive. -GI ordered bleeding scan which was negative -Hemoglobin remains stable, virtually unchanged since 01/21. Pt Condition on Discharge: Stable Discharge Disposition: Disch w/ Home Health Serv Discharge Time: > 30 minutes Discharge Instructions DIET: Follow Instructions for: Heart Healthy Diet Activities you can perform: Regular-No Restrictions Follow up Referrals: Gastroenterology - 10 Days with Radhames Bang MD PCP Follow-up - 2-3 Days with Niya Abbott M.d. New Orders: CBC WITH DIFF - 2-3 Days New Medications: Pantoprazole (Protonix) 40 Mg Tab 40 MG PO DAILY Ulcer Prevention #30 Ref 0 TAB Sucralfate Liq (Sucralfate Liq) 1 Gm/10 Ml Ester 1 GM PO ACHS Reflux #1 BOTTLE Continued Medications: Alendronate (Alendronate) 70 Mg Tab 70 MG PO Q7D Osteporosis Treatment #4 Ref 0 TAB Atorvastatin (Atorvastatin) 20 Mg Tab 20 MG PO HS Cholesterol Management #30 Ref 0 TAB Buspirone (Buspirone) 7.5 Mg Tab 7.5 MG PO BID Anxiety Ref 0 TAB Fluoxetine (Fluoxetine) 20 Mg Cap 20 MG PO DAILY #30 Ref 0 CAP Latanoprost Opth Drops (Latanoprost Opth Drops) 0.005% Drops 1 DROP EACH EYE HS Refrigerate until opened. Glaucoma #2.5 Ref 0 ML Metoprolol Tartrate (Metoprolol Tartrate) 25 Mg Tab 25 MG PO BID #60 Ref 0 TAB Phenytoin Extended (Dilantin) 100 Mg Cap 100 MG PO TID Control Seizures #90 Ref 0 CAP Additional Information Written by Efren Martinez, acting as scribe for Dr. Friedman on 01/26/17 at 10:50. This note was transcribed by terenceibMelissa TENORIO. I, Dr. Devi Friedman personally performed the history, physical exam, and medical decision making; and confirmed the accuracy of the information in the transcribed note. Authenticated by Dr. Devi Friedman on 01/26/17 at 10:50. Efren Martinez Jan 26, 2017 10:42 Devi Friedman MD Jan 26, 2017 17:48
== END 2017-01-26 11:10 | disposition home health service (06) | DRG 378 ==
LOC: NEPE 20:46 → NEDA 22:57 → NEPHCDU 01-21 01:48 → OBSVTOIN 01-22 17:22
PROVIDERS: ADMIT Hospitalist; ATTEND Hospitalist
PROC: 0DB68ZX Excision of Stomach, Via Natural or Artificial Opening Endoscopic, Diagnostic (ICD-10-PCS; principal; 2017-01-21 16:00)
DX: K92.2 Gastrointestinal hemorrhage, unspecified (principal); N39.0 Urinary tract infection, site not specified; K25.9 Gastric ulcer, unspecified as acute or chronic, without hemorrhage or perforation; F03.90 Unspecified dementia, unspecified severity, without behavioral disturbance, psychotic disturbance, mood disturbance, and anxiety; E53.8 Deficiency of other specified B group vitamins; K22.10 Ulcer of esophagus without bleeding; D62 Acute posthemorrhagic anemia; B96.89 Other specified bacterial agents as the cause of diseases classified elsewhere; K22.2 Esophageal obstruction; G40.909 Epilepsy, unspecified, not intractable, without status epilepticus; M06.9 Rheumatoid arthritis, unspecified; K44.9 Diaphragmatic hernia without obstruction or gangrene; Z79.1 Long term (current) use of non-steroidal anti-inflammatories (NSAID); Z85.038 Personal history of other malignant neoplasm of large intestine; Z86.010 Personal history of colon polyps; H40.9 Unspecified glaucoma; H91.90 Unspecified hearing loss, unspecified ear; E78.5 Hyperlipidemia, unspecified; F41.9 Anxiety disorder, unspecified; I10 Essential (primary) hypertension; Z87.891 Personal history of nicotine dependence
CPT/HCPCS: 74177; 76937; 78278; 80048; 80053; 80185; 81001; 82272; 85014; 85018; 85025; 85610; 85730; 86850; 86900; 86901; 86920; 87077; 87086; 87186; 88305; 88311; 88312; 99285; A9560; C9113; G0378; G8987-GP; G8988-GP; J0696; Q9967

== ENCOUNTER 2017-05-21 03:48 | Emergency (ER) | payer OTHER, MEDICAID ==
[~2017-05-21 03:48] MED LIST changes: +ALEN1TAB48 PO; +ATOR20TA15 PO; -ATOR20TA42 PO; -B12-1CHW PO; +BUSP1TAB PO; +DILA100C PO; +FLUO20CA4 PO; -FOSA70TA PO; -HALO0.5T PO; -LATA.005%O OU; +LATA0.002 EACH EYE; -MAXZ25 PO; +METO25TA3 PO; -METO50 PO; -MONT10TA2 PO; -PHEN100 PO; +PROT40TA PO; +SUCR1S PO; -TYLE500T PO
[2017-05-21 03:50] VITALS: BP 138/56; PULSE 67; RESP 20; TEMP 98.7; O2SAT 99
[2017-05-21] MEDS ORDERED: ALPR0.25 PO (05:10)
--- NOTE | 2017-05-21 05:10 | PD ---
HPI Chief Complaint: Fall Time Seen by Provider: 05:05 Travel History International Travel<30 days: No Contact w/Intl Traveler<30days: No Traveled to known affect area: No History of Present Illness HPI FALL AROUND 2AM FROM [facility] TRIP AND FALL, HAD LACERATION TO LEFT FOREHEAD WHICH WAS BLEEDING , NO LOC, BUT CAME HERE TO BE EVALUATED...PER DAUGHTER NOT ON BLOOD THINNERS AND IS ON [facility] Past Medical History Arthritis: Yes (left thumb) Cancer: Yes (colon 2002) Cardiovascular Problems: Yes (HTN) High Cholesterol: Yes Chemotherapy: Yes Chest Pain: No Congestive Heart Failure: No Cerebrovascular Accident: No Dementia: Yes Diabetes: No Diminished Hearing: Yes (WEARS HEARING AID IN RIGHT EAR. ) Endocrine: No Gastrointestinal Disorders: Yes GERD: Yes Glaucoma: Yes Genitourinary: Yes (HX OF UROSEPSIS) Headaches: Yes Hypertension: Yes Immune Disorder: No Musculoskeletal: Yes Neurologic: Yes (DAUGHTER STATES DEMENTIA) Psychiatric: No Integumentary: Yes (DSG LEFT INDEX FINGER, POST I&D 2 DAYS AGO, ON ANTIBIOTICS) Immunizations Current: Yes Seizures: No Triglycerides - High: Yes Menopausal: Yes Past Surgical History Abdominal Surgery: No Cardiac Surgery: No Ear Surgery: No Endocrine Surgery: No Eye Surgery: Yes (cataract implants 1984) Genitourinary Surgery: No Gynecologic Surgery: No Joint Replacement: Yes Neurologic Surgery: No Oral Surgery: Yes (teeth pulled) Thoracic Surgery: No Other Surgery: Yes Social History Alcohol Use: No Tobacco Use: No Substance Use: No Allergies-Medications (Allergen,Severity, Reaction): Coded Allergies: sulfamethoxazole (Verified Allergy, Mild, 05/21/17) trimethoprim (Verified Allergy, Mild, 05/21/17) Reported Meds & Prescriptions Reported Meds & Active Scripts Active Protonix (Pantoprazole Sodium) 40 Mg Tab 40 Mg PO DAILY Reported Multi For Her 50+ (Multiple Vitamins W/ Minerals) 1 Tab Tab 1 Mg PO DAILY Minh-Citrate Plus Vitamin D (Calcium Citrate-Vitamin D) 250-100 Mg-Unit Tab 1 Tab PO BID Fluoxetine (Fluoxetine HCl) 20 Mg Capsule 20 Mg PO DAILY Trazodone (Trazodone HCl) 50 Mg Tab 50 Mg PO HS Alprazolam 0.25 Mg Tab 0.25 Mg PO Q6H PRN Latanoprost Opth Drops (Latanoprost) 0.005% Drops 1 Drop EACH EYE HS Refrigerate until opened. Dilantin (Phenytoin Extended) 100 Mg Cap 100 Mg PO TID Review of Systems Except as stated in HPI: all other systems reviewed are Neg Skin: Positive Other (LACERATION ) Physical Exam Narrative GENERAL: SKIN: Warm and dry. 3 CM LAC OVER LEFT EYEBROW, PERPENDICULAR TO EYEBROW...NO SKULL FX, NO CREPITUS, NVI HEAD: Atraumatic. Normocephalic. EYES: Pupils equal and round. No scleral icterus. No injection or drainage. ENT: No nasal bleeding or discharge. Mucous membranes pink and moist. NECK: Trachea midline. No JVD. CARDIOVASCULAR: Regular rate and rhythm. RESPIRATORY: No accessory muscle use. Clear to auscultation. Breath sounds equal bilaterally. GASTROINTESTINAL: Abdomen soft, non-tender, nondistended. MUSCULOSKELETAL: Extremities without clubbing, cyanosis, or edema. No obvious deformities. NEUROLOGICAL: Awake and alert. No obvious cranial nerve deficits. Motor grossly within normal limits. Five out of 5 muscle strength in the arms and legs. Normal speech. PSYCHIATRIC: Appropriate mood and affect; insight and judgment normal. Data Data Last Documented VS Orders Orders Ct Brain W/O Iv Contrast(Rout) (05/21/17 ) Hand, Complete ([id number]) (05/21/17 ) Splint Or Brace Apply/Monitor (05/21/17 06:07) Finger Splint (05/21/17 ) MDM Medical Decision Making Medical Screen Exam Complete: Yes Emergency Medical Condition: Yes Medical Record Reviewed: Yes Differential Diagnosis SKULL FX V ICH V SKIN LAC Narrative Course ct neg for ich or skull fx, however hand xray did show a 5th middle phalanx fracture, [facility] place [facility] Diagnosis Primary Impression: FACIAL LACERATION S/P DERMABOND REPAIR Additional Impression: LEFT 5TH MIDDLE PHALANX FRACTURE Patient Instructions: Finger Fracture (ED), General Instructions, Skin Adhesive Care (ED) Disposition: 01 DISCHARGE HOME Condition: Stable Idris Bey MD May 21, 2017 05:10
[2017-05-21] MEDS ORDERED: FLUO20CA12 PO (05:12)
[2017-05-21] MEDS ORDERED: CAL-TAB4 PO (05:12)
[2017-05-21] MEDS ORDERED: MULTTAB25 PO (05:12)
[2017-05-21] MEDS ORDERED: TRAZ50TA12 PO (05:12)
--- NOTE | 2017-05-21 05:28 | RADRPT ---
EXAM DATE/TIME: 05/21/2017 05:17 [facility] COMPARISON: No previous studies available for comparison. INDICATIONS : Left hand pain. MEDICAL HISTORY : None. SURGICAL HISTORY : None. ENCOUNTER: Initial ACUITY: 1 day PAIN SCORE: Non-responsive. LOCATION: Left hand. FINDINGS: Diffuse osteopenia. There is deformity of the midshaft of the 5th metacarpal with possible thin disc ontinuity of the lateral cortex mid shaft. 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 No radiopaque foreign bodies seen. CONCLUSION: 1. Equivocal findings and a possible midshaft fracture 5th meta-carpal bone. Recommend correlation w ith clinical exam for possible point tenderness. 2. Advanced osteoarthritic change the 2nd PIP and 1st CMC articulations. Richard Hubbard MD on May 21, 2017 at 5:26 Board Certified Radiologist. This report was verified electronically.
--- NOTE | 2017-05-21 06:11 | RADRPT ---
EXAM DATE/TIME: 05/21/2017 05:17 [facility] COMPARISON: CT BRAIN W/O CONTRAST, May 01, 2016, 22:20. INDICATIONS : Fall. Laceration to right supraorbital region. RADIATION DOSE: 56.35 CTDIvol (mGy) MEDICAL HISTORY : Dementia. Cardiovascular disease Hypertension.Colon Cancer SURGICAL HISTORY : None. ENCOUNTER: Initial ACUITY: 1 day PAIN SCALE: 5/10 LOCATION: Right cranial TECHNIQUE: Multiple contiguous axial images were obtained of the head. Using automated exposure control and adj ustment of the mA and/or kV according to patient size, radiation dose was kept as low as reasonably a chievable to obtain optimal diagnostic quality images. DICOM format image data is available electro nically for review and comparison. FINDINGS: There is marked central and cortical atrophy with dilatation of ventricular and sulcal spaces. There is no parenchymal hemorrhage, acute infarction or mass lesion identified. There are no extra-axial fluid collections appreciated. The posterior fossa is unremarkable with midline fourth ventricle. T he portion of the orbits and paranasal sinuses visualized are unremarkable. There are numerous calcif ications scattered around the subarachnoid space, unchanged. Subtle hypodensity in the left thalamus is unchanged CONCLUSION: No acute disease. No subarachnoid hemorrhage is noted. Emil Sweeney MD on May 21, 2017 at 6:07 Board Certified Radiologist. This report was verified electronically.
== END 2017-05-21 07:00 | disposition home or self-care (01) ==
LOC: NEPC 03:48
DX: S01.81XA Laceration without foreign body of other part of head, initial encounter (principal); F03.90 Unspecified dementia, unspecified severity, without behavioral disturbance, psychotic disturbance, mood disturbance, and anxiety; H40.9 Unspecified glaucoma; I10 Essential (primary) hypertension; I25.10 Atherosclerotic heart disease of native coronary artery without angina pectoris; K21.9 Gastro-esophageal reflux disease without esophagitis; W01.0XXA Fall on same level from slipping, tripping and stumbling without subsequent striking against object, initial encounter; Z98.890 Other specified postprocedural states; Z85.038 Personal history of other malignant neoplasm of large intestine; S62.603A Fracture of unspecified phalanx of left middle finger, initial encounter for closed fracture
CPT/HCPCS: 12013; 29130; 70450; 73130

== ENCOUNTER 2017-10-30 02:20 | Emergency (ER) | payer OTHER, MEDICAID ==
[~2017-10-30] VITALS: Ht 162.6 cm; Wt 60.0 kg
[~2017-10-30 02:20] MED LIST changes: -ALEN1TAB48 PO; +ALPR0.25 PO; -ATOR20TA15 PO; -BUSP1TAB PO; +CAL-TAB4 PO; +FLUO20CA12 PO; -FLUO20CA4 PO; -METO25TA3 PO; +MULTTAB25 PO; -SUCR1S PO; +TRAZ50TA12 PO
[2017-10-30 02:24] VITALS: BP 192/85; PULSE 86; RESP 20; TEMP 97.9; O2SAT 95
[2017-10-30] MEDS ORDERED: PRIM50TA5 PO (02:39)
[2017-10-30] MEDS ORDERED: LORA0.5T PO (02:39)
[2017-10-30] MEDS ORDERED: HYDR-3516 PO (02:39)
[2017-10-30] MEDS ORDERED: OMEP20TA93 PO (02:39)
[2017-10-30] MEDS ORDERED: LORA-650 PO (02:39)
[2017-10-30 03:00] VITALS: BP 183/83; PULSE 75; RESP 20; O2SAT 100
[2017-10-30] MEDS ORDERED: TETANUS/DIPHTHERIA TOXOID ADULT 0.5 ML VIAL IM ONE (03:15)
[2017-10-30] MEDS ORDERED: LORazepam 2 MG/ML VIAL IV PUSH ONE (03:45)
--- NOTE | 2017-10-30 04:11 | RADRPT ---
EXAM DATE/TIME: 10/30/2017 03:18 [facility] COMPARISON: CT BRAIN W/O CONTRAST, May 21, 2017, 5:17. INDICATIONS : Trauma; fall. RADIATION DOSE: 56.35 CTDIvol (mGy) ; Patient motion MEDICAL HISTORY : Hypertension. Dementia. Cardiovascular disease SURGICAL HISTORY : None. ENCOUNTER: Initial ACUITY: 1 day PAIN SCALE: 5/10 LOCATION: cranial TECHNIQUE: Multiple contiguous axial images were obtained of the head. Using automated exposure control and adj ustment of the mA and/or kV according to patient size, radiation dose was kept as low as reasonably a chievable to obtain optimal diagnostic quality images. DICOM format image data is available electro nically for review and comparison. FINDINGS: CEREBRUM: The ventricles, sulci, and basal cisterns are prominent, characteristic of moderate severity central cortical atrophy, stable from prior. Decreased attenuation in the periventricular white matter and m ultiple punctate subarachnoid calcifications are stable. No evidence of midline shift, mass lesion, hemorrhage or acute infarction. No extra-axial fluid collections are seen. POSTERIOR FOSSA: The cerebellum and brainstem are intact. The 4th ventricle is midline. The cerebellopontine angle i s unremarkable. EXTRACRANIAL: The visualized portion of the orbits is intact. SKULL: Left mid convexity frontal scalp hematoma measuring 11 mm in thickness. No radiopaque foreign bodies . The calvaria is intact. No evidence of skull fracture. CONCLUSION: 1. Left frontal scalp hematoma. No skull fracture. 2. No acute findings in the brain. Richard Hubbard MD on October 30, 2017 at 4:08 Board Certified Radiologist. This report was verified electronically.
--- NOTE | 2017-10-30 04:32 | PD ---
HPI . Scalp laceration Chief Complaint: Fall Time Seen by Provider: 02:27 Travel History International Travel<30 days: No Contact w/Intl Traveler<30days: No Traveled to known affect area: No History of Present Illness HPI This patient presents to us by EVAC disclosed a fall at home which resulted in a large scalp laceration. This patient is on hospice. I did not ask why. The hospice nurse is here with her as is her family. They report that she simply lost her balance and fell and struck her head on a vanity. There was no loss of consciousness. The laceration is quite large and his bleeding profusely. The incident occurred just prior to arrival. PFSH Past Medical History Arthritis: Yes (left thumb) Cancer: Yes (colon 2002) Cardiovascular Problems: Yes (HTN) High Cholesterol: Yes Chemotherapy: Yes Chest Pain: No Congestive Heart Failure: No Cerebrovascular Accident: No Dementia: Yes Diabetes: No Diminished Hearing: Yes (WEARS HEARING AID IN RIGHT EAR. ) Endocrine: No Gastrointestinal Disorders: Yes GERD: Yes Glaucoma: Yes Genitourinary: Yes (HX OF UROSEPSIS) Headaches: Yes Hypertension: Yes Immune Disorder: No Musculoskeletal: Yes Neurologic: Yes (DAUGHTER STATES DEMENTIA) Psychiatric: No Integumentary: Yes (DSG LEFT INDEX FINGER, POST I&D 2 DAYS AGO, ON ANTIBIOTICS) Immunizations Current: Yes Seizures: No Triglycerides - High: Yes ?: Not Menopausal: Yes Past Surgical History Abdominal Surgery: No Cardiac Surgery: No Ear Surgery: No Endocrine Surgery: No Eye Surgery: Yes (cataract implants 1984) Genitourinary Surgery: No Gynecologic Surgery: No Joint Replacement: Yes Neurologic Surgery: No Oral Surgery: Yes (teeth pulled) Thoracic Surgery: No Other Surgery: Yes Social History Alcohol Use: No Tobacco Use: No Substance Use: No Allergies-Medications (Allergen,Severity, Reaction): Coded Allergies: sulfamethoxazole (Verified Allergy, Mild, 10/30/17) trimethoprim (Verified Allergy, Mild, 10/30/17) Reported Meds & Prescriptions Reported Meds & Active Scripts Active Reported Hydrocodone-Acetaminophen 5-325 mg Tab 1 Tab PO Q6H PRN Primidone 50 Mg Tab 50 Mg PO BID Allergy Relief (Loratadine) 10 Mg Tab 10 Mg PO DAILY Omeprazole 20 Mg Tab 20 Mg PO DAILY Lorazepam 0.5 Mg Tab 0.5 Mg PO HS PRN Multi For Her 50+ (Multiple Vitamins W/ Minerals) 1 Tab Tab 1 Mg PO DAILY Minh-Citrate Plus Vitamin D (Calcium Citrate-Vitamin D) 250-100 Mg-Unit Tab 1 Tab PO BID Fluoxetine (Fluoxetine HCl) 20 Mg Capsule 20 Mg PO DAILY Trazodone (Trazodone HCl) 50 Mg Tab 50 Mg PO HS Alprazolam 0.25 Mg Tab 0.25 Mg PO Q6H PRN Latanoprost Opth Drops (Latanoprost) 0.005% Drops 1 Drop EACH EYE HS Refrigerate until opened. Dilantin (Phenytoin Extended) 100 Mg Cap 100 Mg PO TID Review of Systems Except as stated in HPI: all other systems reviewed are Neg Physical Exam Narrative GENERAL: Awake and alert. Agitated. SKIN: Warm and dry. She has 2 lacerations on her head. She has a large scalp laceration and then a smaller lateral to her left eye. HEAD:. Normocephalic. NECK: Normal range of motion. Nontender.. RESPIRATORY: Nonlabored respirations. MUSCULOSKELETAL: Atraumatic. NEUROLOGICAL: Alert. Moving all 4 extremities equally. She has good strength. PSYCHIATRIC: Unable to assess. Data Data Last Documented VS Vital Signs Date Time Temp Pulse Resp B/P (MAP) Pulse Ox O2 Delivery O2 Flow Rate FiO2 10/30/17 03:00 75 20 183/83 (116) 100 Room Air 10/30/17 02:[address] Brain W/O Iv Contrast(Rout) (10/30/17 03:04) Tetanus/Diphtheria Tox Adult (Tetanus/Di (10/30/17 03:15) Lorazepam Inj (Ativan Inj) (10/30/17 03:45) MDM Medical Decision Making Medical Screen Exam Complete: Yes Emergency Medical Condition: Yes Differential Diagnosis My differential diagnosis of head trauma includes but is not limited to scalp contusion, concussion, intracerebral hemorrhage. Narrative Course This patient presents status post a slip and fall at home with a large scalp laceration. Tetanus has been updated. CT of her head has been done. CT: 1. Left frontal scalp hematoma. No skull fracture. 2. No acute findings in the brain. The patient was somewhat agitated. She was given Ativan prior to attempts at repair of her lacerations. Procedures Procedure Narrative LACERATION LOCATION: Scalp LENGTH: 11.5 cm NUMBER OF STITCHES/RERE: 11 REPAIR: The area of the laceration was prepped with Betadine and sterilely draped. The laceration was infiltrated with 20 cc of 1% plain lidocaine. The wound was copiously irrigated and explored without evidence of foreign body, tendon injury or neurovascular injury. The wound was deep to the skull. There was a large flap. The wound was closed using 4-0 Prolene. This was a single layer repair. Antibiotic ointment was applied. Family was advised to apply antibiotic ointment to the laceration twice daily. They were advised to wash the scalp gently with baby shampoo. She tolerated the procedure well without complication. Diagnosis Primary Impression: Scalp laceration Qualified Codes: S01.01XA - Laceration without foreign body of scalp, initial encounter Additional Impression: Facial laceration Qualified Codes: S01.81XA - Laceration without foreign body of other part of head, initial encounter Patient Instructions: Facial Laceration (ED), General Instructions Disposition: 01 DISCHARGE HOME Condition: Stable Chichi Snell MD Oct 30, 2017 04:32
--- NOTE | 2017-10-30 05:04 | PD ---
Physical Exam Time Seen by Provider: 05:03 Data Data Last Documented VS Vital Signs Date Time Temp Pulse Resp B/P (MAP) Pulse Ox O2 Delivery O2 Flow Rate FiO2 10/30/17 03:00 75 20 183/83 (116) 100 Room Air 10/30/17 02:[address] Brain W/O Iv Contrast(Rout) (10/30/17 03:04) Tetanus/Diphtheria Tox Adult (Tetanus/Di (10/30/17 03:15) Lorazepam Inj (Ativan Inj) (10/30/17 03:45) Ed Discharge Order (10/30/17 04:33) MDM Medical Record Reviewed: Yes Supervised Visit with RENATA: No Procedures Procedure Narrative LACERATION LOCATION: Left forehead LENGTH: 3 cm NUMBER OF STITCHES/RERE: 4 sutures REPAIR: The area of the laceration was prepped with Betadine and sterilely draped. The laceration was infiltrated with 1% lidocaine. The wound was copiously irrigated and explored without evidence of foreign body, tendon injury or neurovascular injury. The wound was closed using 5-0 Prolene. This was a single layer repair. A sterile dressing was applied. The patient was advised to keep the dressing clean and dry. Patient tolerated the procedure well. Diagnosis Primary Impression: Scalp laceration Qualified Codes: S01.01XA - Laceration without foreign body of scalp, initial encounter Additional Impression: Facial laceration Qualified Codes: S01.81XA - Laceration without foreign body of other part of head, initial encounter Patient Instructions: General Instructions, Facial Laceration (ED) Departure Forms: Tests/Procedures Disposition: 01 DISCHARGE HOME Condition: Stable Elva Gilbert Oct 30, 2017 05:04
== END 2017-10-30 05:52 | disposition home or self-care (01) ==
LOC: NEPC 02:20
DX: S01.01XA Laceration without foreign body of scalp, initial encounter (principal); S01.81XA Laceration without foreign body of other part of head, initial encounter; I10 Essential (primary) hypertension; E78.00 Pure hypercholesterolemia, unspecified; F03.90 Unspecified dementia, unspecified severity, without behavioral disturbance, psychotic disturbance, mood disturbance, and anxiety; K21.9 Gastro-esophageal reflux disease without esophagitis; M19.90 Unspecified osteoarthritis, unspecified site; W01.190A Fall on same level from slipping, tripping and stumbling with subsequent striking against furniture, initial encounter; Z85.038 Personal history of other malignant neoplasm of large intestine; Z23 Encounter for immunization
CPT/HCPCS: 12004; 12013; 70450; 90471; 90714; 96374; 99285; J2060

== ENCOUNTER 2018-04-27 19:23 | Observation (INO) ==
[2018-04-27] MEDS ORDERED: Sod Chloride 0.9% Inj 1,000 ML IV.SIG ONE (20:27)
--- NOTE | 2018-04-27 21:00 | ED ---
HPI General Chief complaint: Nausea/Vomiting/Diarrhea Stated complaint: DIARRHEA/POSS C DIFF X3WKS Time Seen by Provider: 04/27/18 20:03 History of Present Illness HPI narrative: 87-year-old female history of dementia, hypertension, depression here for evaluation of diarrhea. Patient is under hospice service for chronic dementia, she was prescribed Flagyl 3 times daily for 2 weeks, last dose was April 18 according to the daughter at the bedside. Patient continues to have diarrhea, she had 5 lose bowel movements today, no fever chills or night sweats , patient also has a right leg swelling since April 05. Patient has baseline dementia and she is unable to give any condition and all the information is taken from the daughter at the bedside. Related Data Home Medications Medication Instructions Recorded Confirmed Dilantin 100 mg PO TID 04/28/18 04/28/18 fluoxetine 20 mg PO DAILY 04/28/18 04/28/18 hydrocodone-acetaminophen 0.5 tab PO AC LUNCH 04/28/18 04/28/18 hydrocodone-acetaminophen 1 tab PO BID 04/28/18 04/28/18 latanoprost 1 drp OPHTHALMIC (EYE) HS 04/28/18 04/28/18 loperamide 1 mg PO Q2H PRN 04/28/18 04/28/18 lorazepam 0.25 mg PO AC LUNCH 04/28/18 04/28/18 lorazepam 0.5 mg PO BID 04/28/18 04/28/18 omeprazole 20 mg PO DAILY 04/28/18 04/28/18 primidone 50 mg PO BID 04/28/18 04/28/18 trazodone 50 mg PO HS 04/28/18 04/28/18 Previous Rx's Medication Instructions Recorded cefuroxime axetil 250 mg PO Q12H #6 tab 04/28/18 cholestyramine (with sugar) 4 gm PO BID 10 Days each 04/28/18 rivaroxaban [Xarelto] 15 mg PO BID #42 tab 04/28/18 Allergies Allergy/AdvReac Type Severity Reaction Status Date / Time sulfamethoxazole Allergy Mild Nausea Verified 04/27/18 19:40 trimethoprim Allergy Mild Nausea Verified 04/27/18 19:40 Review of Systems Except as stated in HPI: all other systems reviewed are negative [facility] Medical History Medical History C. difficile diarrhea (Acute) Colon cancer (Acute) Dementia (Acute) GI bleed due to NSAIDs (Acute) Gastric ulcer (Acute) Hiatal hernia (Acute) Rheumatoid arthritis (Acute) Seizure (Acute) Shoulder fracture (Acute) Venous insufficiency (Acute) Surgical History Surgical History History of colonoscopy (Acute) History of thumb surgery (Acute) Status post cataract surgery (Acute) Family History Family History Other Family history unobtainable Social History Social History Substance History: No History of Abuse Second Hand Smoke Exposure: No Smoking Status: Never smoker How Often Do You Have a Drink Containing Alcohol: Never Recent Travel in [facility] within the Last 8 Weeks: No Recent Out of Country Travel within the Last 8 Weeks: No Exam Narrative Exam Narrative: GENERAL: No acute distress. SKIN: Focused skin assessment warm/dry. HEAD: Atraumatic. Normocephalic. EYES: Pupils equal and round. No scleral icterus. No injection or drainage. ENT: No nasal bleeding or discharge. Mucous membranes pink and moist. NECK: Trachea midline. No JVD. CARDIOVASCULAR: Regular rate and rhythm. No murmur appreciated. RESPIRATORY: No accessory muscle use. Clear to auscultation. Breath sounds equal bilaterally. GASTROINTESTINAL: Abdomen soft, non-tender, nondistended. Hepatic and splenic margins not palpable. MUSCULOSKELETAL: Right leg nonpitting edema extending to the right thigh, no redness, not warm to touch, no obvious deformities. NEUROLOGICAL: Awake and alert. No obvious cranial nerve deficits. Motor grossly within normal limits. Normal speech. PSYCHIATRIC: Appropriate mood and affect; insight and judgment normal. Course Initial Documented Vital Signs Temperature 99.2 F 04/27/18 19:40 Pulse Rate 73 04/27/18 19:40 Respiratory Rate 18 04/27/18 19:40 Blood Pressure 146/65 H 04/27/18 19:40 Pulse Oximetry 96 04/27/18 19:40 Last Documented Vital Signs Temperature 98.3 F 04/28/18 12:00 Pulse Rate 63 04/28/18 12:00 Respiratory Rate 16 04/28/18 12:00 Blood Pressure 164/69 H 04/28/18 12:00 Pulse Oximetry 98 04/28/18 12:00 Medical Decision Making MDM Narrative Medical decision making narrative: 87-year-old female here for evaluation of diarrhea, she was given Flagyl 3 times a day for 2 weeks empirically, there is no record of any stool studies, Dilantin level on January 20 was 15.3. Ultrasound here in the ER shows extensive DVT of the right leg extending all the way to the right iliac. Lovenox subcu was given, urinalysis showed Ceftin 1 g given, patient has dehydration from the severe diarrhea she has been having , C. difficile is negative, patient will benefit from admission for 23 hours observation for severe dehydration and diarrhea, UTI, massive DVT. Lab Data Result diagrams: 04/27/18 23:25 04/28/18 13:28 Lab Results 04/27/18 04/27/18 04/27/18 Range/Units 20:45 23:13 23:25 CBC w Diff Slide review pending WBC 8.5 (4.0-11.0) th/mm3 RBC 3.48 L (4.00-5.30) mil/mm3 Hgb 11.1 L (11.6-15.3) gm/dL Hct 31.6 L (35.0-46.0) % MCV 91.0 (80.0-100.0) fL MCH 31.8 (27.0-34.0) pg MCHC 35.0 (32.0-36.0) % RDW 14.1 (11.6-17.2) % Plt Count 162 (150-450) th/mm3 MPV 7.4 (7.0-11.0) fL Neut % (Auto) 70.6 H (16.0-70.0) % Lymph % (Auto) 18.9 (9.0-44.0) % [place] % (Auto) 6.7 (0.0-8.0) % Eos % (Auto) 3.1 (0.0-4.0) % Baso % (Auto) 0.7 (0.0-2.0) % Neut # (Auto) 5.9 (1.8-7.7) th/mm3 Lymph # (Auto) 1.6 (1.0-4.8) th/mm3 [place] # (Auto) 0.6 (0.0-0.9) th/mm3 Eos # (Auto) 0.3 (0.0-0.4) th/mm3 Baso # (Auto) 0.1 (0.0-0.2) th/mm3 WBC Differential . Diff Scan Auto diff confirmed Differential Comment . Platelet Estimate Normal (Normal) Platelet Morphology Normal (Normal) Ovalocytes 1+ H (None) Sodium 137 (136-145) meq/L Potassium 3.2 L (3.5-5.1) meq/L Chloride 103 (98-107) meq/L Carbon Dioxide 30.4 (21.0-32.0) meq/L Anion Gap 4 L (5-15) meq/L BUN 7 (7-18) mg/dL Creatinine 0.58 (0.50-1.00) mg/dL Estimated GFR Greater than 89 (>89) mL/min Random Glucose 113 H (74-106) mg/dL Calcium 8.0 L (8.5-10.1) mg/dL Total Bilirubin 0.2 (0.2-1.0) mg/dL AST 18 (15-37) U/L ALT 13 (10-53) U/L Alkaline Phosphatase 176 H (45-117) U/L Total Protein 6.7 (6.4-8.2) g/dL Albumin 2.8 L (3.4-5.0) g/dL Urine Color (Yellw/Straw) Urine Clarity (Clear) Urine pH (5.0-8.5) Ur Specific [place] (1.002-1.035) Urine Protein (Neg-Trace) mg/dL Urine Glucose (UA) (Negative) mg/dL Urine Ketones (Negative) mg/dL Urine Occult Blood (Negative) Urine Nitrate (Negative) Urine Bilirubin (Negative) Urine Urobilinogen (Less than 2) mg/dL Ur Leukocyte Esterase (Negative) Urine RBC (0-3) /hpf Urine WBC (0-5) /hpf Ur Squamous Epith Cells (0-5) /hpf Urine Bacteria (None) /hpf Micro UA Comment Urine Culture Comments Stl C.difficile Tox PCR Negative (Negative) St C. diff Tox Epid 027 Negative (Negative) Phenytoin 29.2 H (10.0-20.0) mcg/mL 04/28/18 04/28/18 Range/Units 00:15 13:28 CBC w Diff WBC (4.0-11.0) th/mm3 RBC (4.00-5.30) mil/mm3 Hgb (11.6-15.3) gm/dL Hct (35.0-46.0) % MCV (80.0-100.0) fL MCH (27.0-34.0) pg MCHC (32.0-36.0) % RDW (11.6-17.2) % Plt Count (150-450) th/mm3 MPV (7.0-11.0) fL Neut % (Auto) (16.0-70.0) % Lymph % (Auto) (9.0-44.0) % [place] % (Auto) (0.0-8.0) % Eos % (Auto) (0.0-4.0) % Baso % (Auto) (0.0-2.0) % Neut # (Auto) (1.8-7.7) th/mm3 Lymph # (Auto) (1.0-4.8) th/mm3 [place] # (Auto) (0.0-0.9) th/mm3 Eos # (Auto) (0.0-0.4) th/mm3 Baso # (Auto) (0.0-0.2) th/mm3 WBC Differential Diff Scan Differential Comment Platelet Estimate (Normal) Platelet Morphology (Normal) Ovalocytes (None) Sodium 139 (136-145) meq/L Potassium 3.9 (3.5-5.1) meq/L Chloride 106 (98-107) meq/L Carbon Dioxide 27.3 (21.0-32.0) meq/L Anion Gap 6 (5-15) meq/L BUN 5 L (7-18) mg/dL Creatinine 0.39 L (0.50-1.00) mg/dL Estimated GFR Greater than 89 (>89) mL/min Random Glucose 91 (74-106) mg/dL Calcium 7.8 L (8.5-10.1) mg/dL Total Bilirubin (0.2-1.0) mg/dL AST (15-37) U/L ALT (10-53) U/L Alkaline Phosphatase (45-117) U/L Total Protein (6.4-8.2) g/dL Albumin (3.4-5.0) g/dL Urine Color Fany H (Yellw/Straw) Urine Clarity Slightly cloudy (Clear) Urine pH 6.0 (5.0-8.5) Ur Specific [place] 1.025 (1.002-1.035) Urine Protein Trace (Neg-Trace) mg/dL Urine Glucose (UA) Negative (Negative) mg/dL Urine Ketones Negative (Negative) mg/dL Urine Occult Blood Trace (Negative) Urine Nitrate Negative (Negative) Urine Bilirubin Negative (Negative) Urine Urobilinogen 0.2 (Less than 2) mg/dL Ur Leukocyte Esterase Moderate H (Negative) Urine RBC 0-3 (0-3) /hpf Urine WBC 21-50 H (0-5) /hpf Ur Squamous Epith Cells 0-5 (0-5) /hpf Urine Bacteria Occasional H (None) /hpf Micro UA Comment Culture indicated Urine Culture Comments Culture indicated Stl C.difficile Tox PCR (Negative) St C. diff Tox Epid 027 (Negative) Phenytoin (10.0-20.0) mcg/mL Imaging Data Radiologist's impression: Venous Doppler Study 04/27/18 20:28 CONCLUSION: Acute thrombus throughout the right lower extremity deep venous system. Discharge Plan Discharge Disposition Patient Disposition: 50 Hospice/Home Discharge Condition Condition: Fair Discharge Order Discharge Orders: Discharge Order (Routine); Ordered 04/28/18 Ordered By: Mehdi Madison Discharge Details Anticipated Discharge Date: 04/28/18 Physicians Team ED Provider: Louis Butler Primary Care Provider: Leisa Saenz Attending Provider: Juice Lowery Other Providers: William,[employer] Status ED Status: Left Department Discharge Information Discharge Date/Time: 04/28/18 07:30
[2018-04-27 21:04] LABS: Chloride 103 meq/L (98-107); Potassium 3.2 meq/L (3.5-5.1); Sodium 137 meq/L (136-145)
[2018-04-27 21:08] LABS: Albumin 2.8 g/dL (3.4-5.0); Anion Gap 4 meq/L (5-15); Blood Urea Nitrogen 7 mg/dL (7-18); Carbon Dioxide 30.4 meq/L (21.0-32.0); Glucose,Random 113 mg/dL (74-106)
[2018-04-27 21:11] LABS: Alanine Aminotransferase 13 U/L (10-53); Aspartate Aminotransferase 18 U/L (15-37); Glomerular Filtration Rate Greater Than 89 mL/min (>89)
[2018-04-27 21:12] LABS: Total Protein 6.7 g/dL (6.4-8.2)
[2018-04-27 21:14] LABS: Alkaline Phosphatase 176 U/L (45-117)
[2018-04-27 21:44] LABS: Phenytoin (Dilantin) 29.2 mcg/mL (10.0-20.0)
--- NOTE | 2018-04-27 22:22 | US ---
EXAM DATE: 04/27/2018 9:55 PM EDT AGE/SEX: 87 years / Female INDICATIONS: Right leg swelling. CLINICAL DATA: This is the patient's initial encounter. Patient reports that signs and symptoms have been present for 3 weeks and indicates a pain score of Nonresponsive. MEDICAL/SURGICAL HISTORY: . C-Diff. Advanced dementia. None. COMPARISON: No prior exams available for comparison. TECHNIQUE: Venous ultrasound of both lower extremities was performed from the inguinal ligament to t he proximal calf. Real-time, color Doppler and spectral tracing, compression and augmentation techni ques were used. FINDINGS: There is occlusive thrombus seen throughout the right lower extremity including the right common femoral vein, superficial femoral vein, popliteal vein, posterior tibial vein, and greater sap henous veins. These veins appear enlarged consistent with acute thrombus Nonocclusive thrombus is see n in the peroneal vein. CONCLUSION: Acute thrombus throughout the right lower extremity deep venous system. Electronically signed by: Og Healy MD 04/27/2018 10:21 PM EDT
[2018-04-27] MEDS ORDERED: Enoxaparin Inj 60 MG/0.6 ML Syringe SQ STA (23:13)
[2018-04-27 23:46] LABS: Baso # (Auto) 0.1 th/mm3 (0.0-0.2); Baso % (Auto) 0.7 % (0.0-2.0); Eos # (Auto) 0.3 th/mm3 (0.0-0.4); Eos % (Auto) 3.1 % (0.0-4.0); Hematocrit 31.6 % (35.0-46.0); Hemoglobin 11.1 gm/dL (11.6-15.3); Lymph # (Auto) 1.6 th/mm3 (1.0-4.8); Lymph % (Auto) 18.9 % (9.0-44.0); Mean Corpuscular Hemoglobin 31.8 pg (27.0-34.0); Mean Platelet Volume 7.4 fL (7.0-11.0); Mono # (Auto) 0.6 th/mm3 (0.0-0.9); Mono % (Auto) 6.7 % (0.0-8.0); Neut # (Auto) 5.9 th/mm3 (1.8-7.7); Neut % (Auto) 70.6 % (16.0-70.0); Platelet Count 162 th/mm3 (150-450); Red Blood Count 3.48 mil/mm3 (4.00-5.30); Red Cell Distribution Width 14.1 % (11.6-17.2); White Blood Count 8.5 th/mm3 (4.0-11.0)
[2018-04-28 00:01] LABS: Ovalocytes 1+; Platelet Estimate Normal (Normal); Platelet Morphology Normal (Normal)
[2018-04-28 00:29] LABS: Bilirubin,Urine Negative (Negative); Clarity,Urine Slightly Cloudy (Clear); Color,Urine Amber (Yellw/Straw); Glucose,Urine (UA) Negative (Negative); Leukocyte Esterase,Urine Moderate (Negative); Nitrite,Urine Negative (Negative); Specific Gravity,Urine 1.025 (1.002-1.035); Urobilinogen,Urine 0.2 mg/dL (Less than 2)
[2018-04-28 00:36] LABS: Bacteria,Urine Occasional /hpf; RBC,Urine 0-3 /hpf (0-3); Squamous Epithelial Cell,Urine 0-5 /hpf (0-5); WBC,Urine 21-50 /hpf (0-5)
[2018-04-28] MEDS ORDERED: Acetaminophen 325 MG Tablet PO PRN (02:08)
[2018-04-28] MEDS ORDERED: Bisacodyl 10 MG Supp RECTAL PRN (02:08)
[2018-04-28] MEDS ORDERED: Temazepam 15 MG Capsule PO PRN (02:08)
[2018-04-28] MEDS ORDERED: Sod Chloride 0.9% Inj 1,000 ML IV.CONT SCH (02:15)
[2018-04-28] MEDS: Heparin - SQ 10,000 UNITS/ML Vial SQ SCH ×2 (03:47→12:46)
[2018-04-28] MEDS: Potassium Chlor 20 mEq Premix 20 MEQ/100 ML PIGGYBACK IV.SIG SCH ×2 (04:01→05:55)
[2018-04-28] MEDS ORDERED: Senna/Docusate Sodium 8.6/50 MG Tablet PO SCH (09:00)
--- NOTE | 2018-04-28 12:01 | P.HP ---
History of Present Illness Primary Care Physician: Leisa Saenz MD Chief Complaint: Diarrhea History of Present Illness: 87-year-old female with known history of dementia, hypertension, seizures, recent history of C. difficile colitis, history of GI bleed, rheumatoid arthritis who is under hospice care was brought to the hospital for evaluation of diarrhea illness. Unable to obtain any information from the patient due to her mentation and cognition. Information was taken from medical records. It appears the patient was just treated for C. difficile colitis with Flagyl and the patient still having diarrhea with 5 loose stools on the day of presentation. Workup was done emergency department and C. difficile was negative. Stool WBCs was negative. Enteric pathogen is pending. There is indicated the patient had swelling in her right leg and a Doppler study was performed which did show an acute thrombus throughout the right lower extremity deep venous system. Patient was given Lovenox in the emergency department. ER physician recommended the patient be observed in the hospital for further care and management. - Diagnosis (1) Deep vein thrombosis (DVT) of right lower extremity (2) Diarrhea Review of Systems unobtainable due to mental condition, unobtainable due to mental status [facility] - History History Provided By: Family Member - Medical History Medical History: Medical History (Last Reviewed 04/28/18 @ 11:53 by COBY Wade) C. difficile diarrhea Colon cancer Dementia GI bleed due to NSAIDs Gastric ulcer Hiatal hernia Rheumatoid arthritis Seizure Shoulder fracture Venous insufficiency - Surgical History Surgical History: Surgical History (Last Updated 04/28/18 @ 11:55 by COBY Wade) History of colonoscopy History of thumb surgery Status post cataract surgery - Family History Family History: Family History (Last Updated 04/28/18 @ 11:55 by COBY Wade) Other Family history unobtainable - Tobacco History Second Hand Smoke Exposure: No Tobacco Use In Past 30 Days: No Smoking Status: Never smoker - Alcohol History How Often Do You Have a Drink Containing Alcohol: Never - Substance Use History Substance History: No History of Abuse - Travel History Recent Travel in the [place] Within the Last 8 Weeks: No Recent Travel Out of the Country Within the Last 8 Weeks: No - Immunization History Tetanus Immunization: Unsure Medications and Allergies Active Medications: Active Medications Acetaminophen (Tylenol) 650 mg PO Q4H PRN PRN Reason: Temp > 100.4 Al Hydroxide/Mg Hydroxide (Milk Of Magnesia Liq) 30 ml PO Q12H PRN PRN Reason: Mild Constipation Bisacodyl (Dulcolax Supp) 10 mg RECTAL DAILY PRN PRN Reason: SEVERE CONSITIPATION Heparin Sodium (Porcine) (Heparin Inj) 5,000 units SQ Q12H [facility] Last Admin: 04/28/18 03:47 Dose: Not Given Ceftriaxone Sodium 1,000 mg/ (Sodium Chloride) 100 mls @ 200 mls/hr IV.SIG Q24H [facility] Last Admin: 04/28/18 04:05 Dose: Not Given Sodium Chloride (Ns Inj) 1,000 mls @ 70 mls/hr IV.CONT .[id number] [facility] Last Admin: 04/28/18 04:01 Dose: 70 mls/hr Lactulose (Lactulose Liq) 30 ml PO DAILY PRN PRN Reason: SEVERE CONSITIPATION Ondansetron HCl (Zofran Inj) 4 mg IV.PUSH Q6H PRN PRN Reason: NAUSEA OR VOMITING Senna/Docusate Sodium (Glenis-Colace) 1 tab PO BID [facility] Sennosides (Senokot) 17.2 mg PO Q12H PRN PRN Reason: Moderate Constipation Temazepam (Restoril) 15 mg PO HS PRN PRN Reason: INSOMNIA Allergies Allergy/AdvReac Type Severity Reaction Status Date / Time sulfamethoxazole Allergy Mild Nausea Verified 04/27/18 19:40 trimethoprim Allergy Mild Nausea Verified 04/27/18 19:40 Home Medications Medication Instructions Recorded Confirmed Type Dilantin 100 mg PO TID 04/28/18 04/28/18 History fluoxetine 20 mg PO DAILY 04/28/18 04/28/18 History hydrocodone-acetaminophen 0.5 tab PO AC LUNCH 04/28/18 04/28/18 History hydrocodone-acetaminophen 1 tab PO BID 04/28/18 04/28/18 History latanoprost 1 drp OPHTHALMIC (EYE) 04/28/18 04/28/18 History loperamide 1 mg PO Q2H PRN 04/28/18 04/28/18 History lorazepam 0.25 mg PO AC LUNCH 04/28/18 04/28/18 History lorazepam 0.5 mg PO BID 04/28/18 04/28/18 History omeprazole 20 mg PO DAILY 04/28/18 04/28/18 History primidone 50 mg PO BID 04/28/18 04/28/18 History trazodone 50 mg PO HS 04/28/18 04/28/18 History Exam Vital signs: Vital Signs 04/27/18 19:40 04/28/18 04:50 04/28/18 07:24 Temperature 99.2 F 98.6 F Pulse Rate 73 118 H 62 Respiratory Rate 18 20 18 Blood Pressure 146/65 H 138/79 136/68 Pulse Oximetry 96 04/28/18 07:27 04/28/18 07:35 04/28/18 08:00 Temperature 98.3 F Pulse Rate 63 Respiratory Rate 18 18 16 Blood Pressure 164/69 H Pulse Oximetry 98 Intake & Output 04/27/18 04/28/18 04/28/18 18:59 06:59 18:59 Intake Total 1200 / 1200 Output Total 100 / 100 Balance 1100 / 1100 Weight 52.404 kg Intake: IV 1200 / 1200 KCl 20 mEq Premix Inj 20 meq In 100 / 100 100 ml @ 50 mls/hr IV.SIG Q2H [facility] Rx#:[id number] NS Inj 1,000 ML @ Wide Open IV. 1000 / 1000 SIG BOLUS ONE Rx#:[id number] Rocephin Inj 1,000 MG In NS Inj 100 / 100 100 ML @ 200 mls/hr IV.SIG ONCE STA Rx#:[id number] Output: Urine 100 / 100 Narrative: GENERAL: Well-developed, cachectic and frail, in no acute distress. Patient is awake, however unable to really answer any questions HEENT: Head is normocephalic without any lesions or masses noted. Facial features are symmetric. Eyes: Pupils equal round reactive to light. Extraocular muscles are intact. Conjunctivae were clear. Oropharyngeal: Pharynx without any erythema edema. Tongue is midline without deviation. Buccal mucosa is moist without any masses or lesions NECK: Supple without any masses. Trachea midline no deviation. No JVD, no bruits are appreciated CARDIAC: Regular rhythm, regular rate. S1/S2 are heard. No murmurs gallops or rubs. LUNGS: Clear to auscultation bilaterally. No wheeze, rhonchi or rales. No use of accessory muscles on inspiration or expiration. ABDOMEN: Soft, nontender. Nondistended. Bowel sounds heard in all 4 quadrants. No organomegaly or masses. Negative rebound, negative guarding EXTREMITIES: No edema, pulses are equal bilaterally. No cyanosis or clubbing NEUROLOGY: Mood and affect appear appropriate. Cranial nerves II through XII grossly intact. Muscle strength 5/5 in upper and lower extremities bilaterally. Deep tendon reflexes are 2+ in upper and lower extremities bilaterally. Results - Labs CBC & Chem 7: 04/27/18 23:25 04/28/18 13:28 Labs: Laboratory Results - last 24 hr 04/27/18 04/27/18 04/27/18 20:45 23:13 23:25 CBC w Diff Slide review pending WBC 8.5 RBC 3.48 L Hgb 11.1 L Hct 31.6 L MCV 91.0 MCH 31.8 MCHC 35.0 RDW 14.1 Plt Count 162 MPV 7.4 Neut % (Auto) 70.6 H Lymph % (Auto) 18.9 Ida % (Auto) 6.7 Eos % (Auto) 3.1 Baso % (Auto) 0.7 Neut # (Auto) 5.9 Lymph # (Auto) 1.6 Ida # (Auto) 0.6 Eos # (Auto) 0.3 Baso # (Auto) 0.1 WBC Differential . Diff Scan Auto diff confirmed Differential Comment . Platelet Estimate Normal Platelet Morphology Normal Ovalocytes 1+ H Sodium 137 Potassium 3.2 L Chloride 103 Carbon Dioxide 30.4 Anion Gap 4 L BUN 7 Creatinine 0.58 Estimated GFR Greater than 89 Random Glucose 113 H Calcium 8.0 L Total Bilirubin 0.2 AST 18 ALT 13 Alkaline Phosphatase 176 H Total Protein 6.7 Albumin 2.8 L Urine Color Urine Clarity Urine pH Ur Specific [place] Urine Protein Urine Glucose (UA) Urine Ketones Urine Occult Blood Urine Nitrate Urine Bilirubin Urine Urobilinogen Ur Leukocyte Esterase Urine RBC Urine WBC Ur Squamous Epith Cells Urine Bacteria Micro UA Comment Urine Culture Comments Stl C.difficile Tox PCR Negative St C. diff Tox Epid 027 Negative Phenytoin 29.2 H 04/28/18 00:15 CBC w Diff WBC RBC Hgb Hct MCV MCH MCHC RDW Plt Count MPV Neut % (Auto) Lymph % (Auto) Ida % (Auto) Eos % (Auto) Baso % (Auto) Neut # (Auto) Lymph # (Auto) Ida # (Auto) Eos # (Auto) Baso # (Auto) WBC Differential Diff Scan Differential Comment Platelet Estimate Platelet Morphology Ovalocytes Sodium Potassium Chloride Carbon Dioxide Anion Gap BUN Creatinine Estimated GFR Random Glucose Calcium Total Bilirubin AST ALT Alkaline Phosphatase Total Protein Albumin Urine Color Fany H Urine Clarity Slightly cloudy Urine pH 6.0 Ur Specific [place] 1.025 Urine Protein Trace Urine Glucose (UA) Negative Urine Ketones Negative Urine Occult Blood Trace Urine Nitrate Negative Urine Bilirubin Negative Urine Urobilinogen 0.2 Ur Leukocyte Esterase Moderate H Urine RBC 0-3 Urine WBC 21-50 H Ur Squamous Epith Cells 0-5 Urine Bacteria Occasional H Micro UA Comment Culture indicated Urine Culture Comments Culture indicated Stl C.difficile Tox PCR St C. diff Tox Epid 027 Phenytoin - Imaging Impressions Venous Doppler Study 04/27/18 20:28 CONCLUSION: Acute thrombus throughout the right lower extremity deep venous system. Caprini VTE Risk Assessment Caprini VTE Risk Assessment: Moderate/High Risk (score >= 2) Caprini Risk Assessment Model: Point Value = 1 Point Value = 2 Point Value = 3 Point Value = 5 Age 41-60 Minor surgery BMI > 25 kg/m2 Swollen legs Varicose veins or History of unexplained or recurrent spontaneous Oral contraceptives or hormone replacement Sepsis (< 1 month) Serious lung disease, including pneumonia (< 1 month) Abnormal pulmonary function Acute myocardial infarction Congestive heart failure (< 1 month) History of inflammatory bowel disease Medical patient at bed rest Age 61-74 Arthroscopic surgery Major open surgery (> 45 min) Laparoscopic surgery (> 45 min) Malignancy Confined to bed (> 72 hours) Immobilizing plaster cast Central venous access Age >= 75 History of VTE Family history of VTE Factor V Leiden Prothrombin [id number] Lupus anticoagulant Anticardiolipin antibodies Elevated serum homocysteine Heparin-induced thrombocytopenia Other congenital or acquired thrombophilia Stroke (< 1 month) Elective arthroplasty Hip, pelvis, or leg fracture Acute spinal cord injury (< 1 month) Prophylaxis Regimen: Total Risk Factor Score Risk Level Prophylaxis Regimen 0-1 Low Early ambulation 2 Moderate Order ONE of the following: *Sequential Compression Device (SCD) *Heparin 5000 units SQ BID 3-4 Higher Order ONE of the following medications: *Heparin 5000 units SQ TID *Enoxaparin/Lovenox 40 mg SQ daily (WT < 150 kg, CrCl > 30 mL/min) *Enoxaparin/Lovenox 30 mg SQ daily (WT < 150 kg, CrCl > 10-29 mL/min) *Enoxaparin/Lovenox 30 mg SQ BID (WT < 150 kg, CrCl > 30 mL/min) AND/OR *Sequential Compression Device (SCD) 5 or more Highest Order ONE of the following medications: *Heparin 5000 units SQ TID (Preferred with Epidurals) *Enoxaparin/Lovenox 40 mg SQ daily (WT < 150 kg, CrCl > 30 mL/min) *Enoxaparin/Lovenox 30 mg SQ daily (WT < 150 kg, CrCl > 10-29 mL/min) *Enoxaparin/Lovenox 30 mg SQ BID (WT < 150 kg, CrCl > 30 mL/min) AND *Sequential Compression Device (SCD) Assessment and Plan - Assessment (1) Deep vein thrombosis (DVT) of right lower extremity Code(s): I82.401 - Acute embolism and thrombosis of unspecified deep veins of right lower extremity Status: Acute (2) Diarrhea Code(s): R19.7 - Diarrhea, unspecified Status: Acute - Plan Deep vein thrombosis of the right lower extremity -Patient had ultrasound performed which did show acute thrombus throughout the right lower extremity deep venous system -Patient was given Lovenox in the emergency department -We will need to discuss with family pertaining to forms of anticoagulation and extent of treatment Diarrhea -C. difficile culture is negative -Stool WBCs with negative -Awaiting stool for enteric pathogens -If patient ruled out for any infectious diarrhea, will start Imodium and maybe consider Lomotil Chronic medical conditions to include dementia, rheumatoid arthritis, seizures -Continue home medications Discussed Condition With: Discussed with daughter at bedside. She has full intention on having the patient discharged back to hospice once patient is able. I discussed with her extensively on treatment modalities for her extensive DVT. I discussed with her the adverse effects of anticoagulation. She did acknowledge understanding. Presently she does not want any invasive or extensive treatment. She is agreeable with anticoagulation at this time. I discussed with the daughter her diarrhea illness with a negative C. difficile culture. She states that she was told use Imodium 1 tablet every 6 hours however that was not helping. I discussed with her the appropriate dosage of 2 tablets per first dose then 1 tablet after each unformed stool. Also discussed with her the use of cholestyramine in order to have stool binding. She does understand at this time. We will plan discharge back to hospice. Discharge Planning: Discharge home in stable condition Activity: Ad bandar. Diet: Regular diet Medication per medication reconciliation Follow-up with primary medical doctor in 1 week
[2018-04-28] MEDS ORDERED: FLUoxetine 20 MG Capsule PO SCH (12:45)
[2018-04-28] MEDS ORDERED: Pantoprazole Sodium 20 MG DR Tablet PO SCH (12:45)
[2018-04-28] MEDS ORDERED: Primidone 50 MG Tablet PO SCH (12:45)
[2018-04-28] MEDS ORDERED: Phenytoin Sodium 100 MG Capsule PO SCH (13:00)
[2018-04-28 14:01] LABS: Chloride 106 meq/L (98-107); Potassium 3.9 meq/L (3.5-5.1); Sodium 139 meq/L (136-145)
[2018-04-28 14:04] LABS: Anion Gap 6 meq/L (5-15); Blood Urea Nitrogen 5 mg/dL (7-18); Calcium 7.8 mg/dL (8.5-10.1); Carbon Dioxide 27.3 meq/L (21.0-32.0); Glucose,Random 91 mg/dL (74-106)
[2018-04-28 14:08] LABS: Glomerular Filtration Rate Greater Than 89 mL/min (>89)
[2018-04-28] MEDS ORDERED: Rivaroxaban 15 MG Tablet PO SCH (14:15)
[2018-04-28] MEDS ORDERED: LORazepam 0.5 MG Tablet PO SCH (21:00)
[2018-04-28] MEDS ORDERED: traZODone 50 MG Tablet PO SCH (21:00)
[2018-04-29] MEDS ORDERED: LORazepam 0.5 MG Tablet PO SCH (11:00)
== END 2018-04-28 15:12 | disposition hospice, home (50) ==
LOC: PHEDA 19:23 → PHED 19:23 → PH3 19:23
PROVIDERS: ADMIT Family Medicine; ATTEND Family Medicine